=== PATIENT | male | born 1950 | race Caucasian/White ===

== ENCOUNTER 2018-08-10 06:00 | Inpatient (IN) | payer OTHER, MEDICARE ==
--- NOTE | 2018-08-05 13:57 | RAD REPORT ---
EXAM DESCRIPTION: Dmitri Huntley And Alison (2 Views)08/05/2018 1:42 pm CLINICAL HISTORY: Preop for knee replacement. COMPARISON: 2016 FINDINGS: Hypertension sub centimeter nodule within the left lung base is unchanged. The lungs appear clear of acute infiltrate. The heart is normal size IMPRESSION: No acute abnormalities displayed
[2018-08-05 14:21] LABS: Urine Appearance CLEAR; Urine Bilirubin NEGATIVE (NEG); Urine Blood NEGATIVE (NEG); Urine Color YELLOW; Urine Glucose NEGATIVE (NEG); Urine Protein NEGATIVE (NEG); Urine Specific Gravity 1.015 (1.005-1.030); Urine pH 7.5 (5.0-7.0)
[2018-08-05 14:22] LABS: Urine Microscopic Reflex NO UMIC
[2018-08-05 14:36] LABS: Absolute Lymphocytes (CBC) 2.3 K/uL (0.7-4.9); Absolute Monocytes 0.6 K/uL (0.1-1.3); Absolute Neutrophil 3.7 K/uL (1.8-8.0); Eosinophils % 4.8 % (0-4.4); Hematocrit 41.7 % (39.6-49.0); Lymphocytes % 33.4 % (15.3-44.8); MCH 31.8 pg (27.0-35.0); MPV 9.6 fL (7.6-11.3); Monocytes % 8.5 % (3.3-12.3); RBC Red Blood Cell Count 4.58 M/uL (4.33-5.43)
[2018-08-05 14:54] LABS: Albumin 3.8 g/dL (3.4-5.0); Bilirubin Total 0.4 mg/dL (0.2-1.0); Protein, Total 7.1 g/dL (6.4-8.2)
[2018-08-05 16:51] LABS: ALT/SGPT 30 U/L (12-78); AST/SGOT 19 U/L (15-37); Albumin 3.8 g/dL (3.4-5.0); Alkaline Phosphatase 53 U/L (45-117); Bilirubin Direct < 0.1 mg/dL (0-0.2); Bilirubin Total 0.4 mg/dL (0.2-1.0)
[2018-08-10] MEDS ORDERED: AMINOPHYLLINE 500 MG/20 ML IV ONE ×2 (06:01→08:59)
--- OUTSIDE RECORDS SUMMARY | 2018-08-10 06:03 | XMS REPORT ---
:1950 Author Organization eClinicalWorks Care Team Providers Name Role Phone Jaswinder Arvizuuel Provider Role Unavailable Allergies No Known Allergies Problems Problem Type Condition Code Onset Dates Condition Status Problem Type 2 diabetes mellitus without E11.9 Active complication, without long-term current use of insulin Problem Presence of left artificial knee Z96.652 Active joint Problem Reactive depression F32.9 Active Problem Plantar fasciitis of right foot M72.2 Active Problem Other chronic pain G89.29 Active Problem Pain, joint, knee, right M25.561 Active Problem Pain in left knee M25.562 Active Problem Presence of right artificial knee Z96.651 Active joint Problem Pain of right heel M79.671 Active Problem Primary osteoarthritis of right M17.11 Active knee Assessment Plantar fasciitis of right foot M72.2 Active Assessment Primary osteoarthritis of right M17.11 Active knee Assessment Pain, joint, knee, right M25.561 Active Assessment Pain of right heel M79.671 Active Medications Medication Code Code Instructions Start End Status Dosage System Date Date Rosuvastatin [facility] 08923454633 40 MG Orally Active 1 tablet Calcium Once a day Ocuvite ND 0 Active not defined Irbesartan-[place] [facility] 60897196910 300-12.5 MG Active 1 tablet chlorothiazide Orally Once a day Multi Vitamin [facility] 59176599234 - Orally Once a Active 1 tablet Mens day Aspirin Adult [facility] 44914847407 81 MG Orally Active 1 tablet Low Strength Once a day Metoprolol [facility] 28048890502 25 MG Orally Active 1 tablet Tartrate Twice a day with food Paroxetine HCl [facility] 25402702755 40MG Active TAKE ONE TABLET BY MOUTH ONCE DAILY MetFORMIN HCl ER [facility] 95614177094 500 MG Orally Active 1 tablet Once a day with evening meal Vitamin D3 [facility] 11939497016 1000 UNIT Active 1 capsule Orally Once a day Irbesartan-[place] [facility] 05862134754 300-12.5 Active TAKE ONE chlorothiazide TABLET BY MOUTH ONCE DAILY B Complex [facility] 51580763480 - Orally Active not defined Results No Known Results Summary Purpose eClinicalWorks Submission
--- OUTSIDE RECORDS SUMMARY | 2018-08-10 06:03 | XMS REPORT ---
:1950 Author Organization eClinicalWorks Care Team Providers Name Role Phone Rachel Dasilva Provider Role Unavailable Allergies, Adverse Reactions, Alerts Substance Reaction Event Type N.K.D.A. Info Not Available Non Drug Allergy Problems Problem Type Condition Code Onset Dates Condition Status Assessment Pain in right knee M25.561 Active Assessment Pre-op examination Z01.818 Active Assessment Other chronic pain G89.29 Active Problem Pain in left knee M25.562 Active Problem Presence of right artificial knee Z96.651 Active joint Problem Other chronic pain G89.29 Active Problem Pain in right knee M25.561 Active Problem Pain of right heel M79.671 Active Problem Presence of left artificial knee Z96.652 Active joint Problem Primary osteoarthritis of right M17.11 Active knee Medications Medication Code Code Instructions Start End Status Dosage System Date Date Rosuvastatin [facility] 33931756732 40 MG Orally Active 1 tablet Calcium Once a day B Complex [facility] 55208084819 - Orally Active not defined Vitamin D3 [facility] 03289690472 1000 UNIT Active 1 capsule Orally Once a day Paroxetine HCl [facility] 26032304831 40MG Active TAKE ONE TABLET BY MOUTH ONCE DAILY Aspirin Adult [facility] 58028546391 81 MG Orally Active 1 tablet Low Strength Once a day Ocuvite NDC 0 Active not defined Multi Vitamin [facility] 57432290610 - Orally Once a Active 1 tablet Mens day Irbesartan-[place] [facility] 07408043134 300-12.5 MG Active 1 tablet chlorothiazide Orally Once a day MetFORMIN HCl ER ND 21945425641 500 MG Orally Active 1 tablet Once a day with evening meal Irbesartan-[place] [facility] 66712617725 300-12.5 Active TAKE ONE chlorothiazide TABLET BY MOUTH ONCE DAILY Metoprolol ND 86198322113 25 MG Orally Active 1 tablet Tartrate Twice a day with food Results No Known Results Summary Purpose eClinicalWorks Submission
[2018-08-10] MEDS ORDERED: NA CHLORIDE 0.9% 1,000 ML ONE ×2 (06:38→09:30)
[2018-08-10] MEDS ORDERED: CEFAZOLIN/SWI 1gm 1 GM/10 ML SYR ONE ×2 (06:38→10:14)
[2018-08-10] MEDS ORDERED: NA CHLORIDE 0.9% 250 ML ONE ×2 (06:55→08:53)
[2018-08-10] MEDS ORDERED: FENTANYL CITR 250 MCG/5 ML ONE (07:00)
[2018-08-10] MEDS ORDERED: MIDAZOLAM HCL 2 MG/2 ML INJ ONE (07:00)
[2018-08-10] MEDS ORDERED: LIDOCAINE 2% MPF 5 ML VIAL ONE (07:00)
[2018-08-10] MEDS ORDERED: PROPOFOL 200 MG/20 ML VIAL IV ONE (07:00)
[2018-08-10] MEDS ORDERED: DEXAMETHASONE 4 MG/ML VIAL ONE (07:08)
[2018-08-10] MEDS ORDERED: ROPLVACAINE HCL 40 ML ONE (07:08)
[2018-08-10] MEDS ORDERED: TRANEXAMIC ACID 1,000 MG in NA CHLORIDE 0.9% 50 ML IV SCH (07:15)
[2018-08-10] MEDS: BUPIVACA 0.25%/EPI 0.0005% MDV 50 ML VIAL ONE ×2 (08:15→11:20)
[2018-08-10] MEDS ORDERED: ROCURONIUM 50 MG/5 ML VIAL IV ONE ×2 (08:34→10:06)
[2018-08-10] MEDS ORDERED: EPHEDRINE SULF 50 MG/10 ML SYR ONE (09:03)
[2018-08-10] MEDS ORDERED: Ringers Lactate 1,000 ML IV ONE (10:14)
[2018-08-10] MEDS ORDERED: NEOSTIGMINE 1 MG/ML -5 ML SYRINGE ONE (10:58)
[2018-08-10] MEDS ORDERED: GLYCOPYRROLATE 0.2 MG/ML SYR ONE (10:58)
[2018-08-10] MEDS ORDERED: KETOROLAC 30 MG/ML INJ ONE (11:03)
[2018-08-10] MEDS ORDERED: ALBUTEROL INHALER 60 PUFF/8 GM IH ONE (11:08)
--- NOTE | 2018-08-10 11:43 | P.BOP ---
Preoperative diagnosis: PRIMARY OSTEOARTHRITIS RIGHT KNEE Postoperative diagnosis: SAME Primary procedure: RIGHT TOTAL KNEE ARTHROPLASTY WITH COMPUTER NAVIGATION, IMAGELESS Change Control Coordinator: NEDA GOMES (GAVE NECESSARY ELECTRICAL TESTER BATTERY SERVICES THROUGHOUT CASE) Estimated blood loss: 150 mL Specimen: BONE SHARDS AND SOFT TISSUES DEBRIDED Findings: EBURNATED BONE MEDIAL COMPARTMENT Anesthesia: General Complications: None Implants: SIGMA [id number]./PS;[id number]/RP;[id number]/RP Fluids & blood products: LEON SIMPLEX w/[id number]; INJ 30 mL 0.25% MARCAINEw/EPI Transferred to: Recovery Room Condition: Good
[2018-08-10] MEDS ORDERED: MORPHINE 4 MG/ML SYR IV PRN (12:12)
[2018-08-10] MEDS ORDERED: DOCUSATE NA 100 MG CAP PO PRN (12:12)
[2018-08-10] MEDS ORDERED: ONDANSETRON 4 MG/2 ML VIAL IV PRN (12:12)
[2018-08-10 12:18] LABS: Hematocrit 41.8 % (39.6-49.0)
--- NOTE | 2018-08-10 13:22 | RAD REPORT ---
EXAM DESCRIPTION: RAD - Knee Right 2 View - 08/10/2018 1:14 pm CLINICAL HISTORY: Right knee surgery FINDINGS: Post surgical changes of a right knee arthroplasty are seen. The prosthesis appears in good position. No fracture or dislocation is noted
[2018-08-10] MEDS: Ringers Lactate 1,000 ML IV SCH (15:14)
[2018-08-10 16:16] VITALS: BMI 36.6
[2018-08-10] MEDS: CEFAZOLIN/SWI 1gm 1 GM/10 ML SYR IV SCH (16:57)
[2018-08-10] MEDS ORDERED: CEFAZOLIN/NS 1gm 1 GM/50 ML BAG IVPB SCH (17:00)
[2018-08-10] MEDS ORDERED: PNEUMOCOCCAL VACCINE 0.5 ML IMVAC ONE (17:00)
[2018-08-10] MEDS ORDERED: GLUCAGON 1 MG/VIAL IM PRN (17:51)
[2018-08-10] MEDS ORDERED: D50W 25 GM/50 ML SYRINGE IV PRN (17:51)
--- NOTE | 2018-08-10 17:51 | P.CNS ---
Date of Consult: 08/10/18 Called for medical management. Patient has a htn and diabetes and history of alcohol abuse. Was brought in by Dr. Arvizu for elective right knee replacement he has no complaints at this time. Will adjust his bp meds and put him on an insuling sliding scale. Possible discharge in the next few days.
[2018-08-10] MEDS: INSULIN -REGULAR HUMAN 50 UNIT/0.5 ML ML SQ SCH (21:00)
[2018-08-11] MEDS: CEFAZOLIN/SWI 1gm 1 GM/10 ML SYR IV SCH (00:25)
[2018-08-11 05:21] LABS: Hematocrit 35.3 % (39.6-49.0)
[2018-08-11] MEDS ORDERED: HOME MED 1 EA UNK (Irbesartan/Hydrochlorothiazide [Avalide 300-12.5 Mg Tablet] 1 EACH) PO SCH (06:00)
[2018-08-11] MEDS: METOPROLOL XL 25 MG TAB PO SCH (06:14)
[2018-08-11] MEDS: IRBESARTAN 150 MG TAB PO SCH (06:14)
[2018-08-11] MEDS: hydroCHLOROthiazide 12.5 MG CAP PO SCH (06:14)
[2018-08-11] MEDS: ENOXAPARIN 30 MG/0.3 ML SQ SCH ×2 (06:15→17:30)
[2018-08-11] MEDS: INSULIN -REGULAR HUMAN 50 UNIT/0.5 ML ML SQ SCH ×4 (07:30→20:31)
[2018-08-11] MEDS: METFORMIN HCL 500 MG TAB PO SCH (08:55)
[2018-08-11] MEDS: FE SULF/FA/VIT B COMP & C TAB PO SCH (08:55)
[2018-08-11] MEDS: CELECOXIB 100 MG CAPSULE PO SCH (08:55)
[2018-08-11] MEDS ORDERED: PAROXETINE HCL 40 MG PO SCH (09:00)
[2018-08-11] MEDS ORDERED: HOME MED 1 EA UNK (Multivitamin [Multivitamins] 1 EACH) PO SCH (09:00)
[2018-08-11] MEDS ORDERED: HOME MED 1 EA UNK (Rosuvastatin Calcium [Crestor] 40 MG) PO SCH (09:00)
--- NOTE | 2018-08-11 09:16 | P.PN ---
Subjective Date of Service: 08/11/18 Primary Care Provider: Finesse Dasilva Chief Complaint: elective right knee replacement Subjective: Improving (sitting at bedside. No complaints) Review of Systems 10-point ROS is otherwise unremarkable Physical Examination - Vital Signs Temperature: 97.8 F Blood Pressure: 139/69 Pulse: 84 Respirations: 16 Pulse Ox (%): 93 - Physical Exam General: Alert, In no apparent distress HEENT: Atraumatic, PERRLA, EOMI Neck: Supple, JVD not distended Respiratory: Clear to auscultation bilaterally, Normal air movement Cardiovascular: Regular rate/rhythm, Normal S1 S2 Gastrointestinal: Normal bowel sounds, No tenderness Musculoskeletal: No tenderness, Other (Right knee bandaged. drain in place. Less volume today) Integumentary: No rashes Neurological: Normal speech, Normal tone, Normal affect Lymphatics: No axilla or inguinal lymphadenopathy - Studies Laboratory Data (last 24 hrs) 08/11/18 04:46: Hgb 12.3 L, Hct 35.3 L D 08/10/18 12:09: Hgb Cancelled 08/10/18 12:09: Hgb 14.3, Hct 41.8 Assessment & Plan - Problems (Diagnosis) (1) Aftercare following right knee joint replacement surgery Current Visit: Yes Status: Acute Plan: Care per Dr. Arvizu. he is doing well. (2) Diabetes 1.5, managed as type 2 Current Visit: Yes Status: Acute Plan: Will continue metformin. Will check an a1c (3) HTN (hypertension) Current Visit: Yes Status: Acute Plan: continue home medications Qualifiers: Hypertension type: essential hypertension Qualified Code(s): I10 - Essential (primary) hypertension Discharge Plan: Home Plan to discharge in: 24 Hours - Code Status/Comfort Care Code Status Assessed: No Code Status: Full Code Physician Review: Patient Assessed, Agree with Above Assessment and Plan Critical Care: No Time Spent Managing Pts Care (In Minutes): 25
[2018-08-11] MEDS: Ringers Lactate 1,000 ML IV SCH (09:49)
[2018-08-11] MEDS: HYDROCODONE/APAP 7.5/325 MG TAB PO PRN ×2 (10:23→20:48)
--- NOTE | 2018-08-11 19:39 | P.PN ---
Date of Service: 08/11/18 (POD#1) S: THIS PATIENT IS FULL OF BRAVADO, TRYING TO JUMP OUT OF BED, AND IMPRESS PHYSICAL THERAPY WITH HIS ABILITIES. HE INDICATES HIS BLOCK WORE OFF AT 2:00 IN THE MORNING, BUT HE HAS NOT DECLARED MORE THAN 3/10 PAIN INTENSITY, AND HE HAS ONLY TAKEN 15 MG OF NORCO AND 650 MG OF TYLENOL ONE TIME AT APPROXIMATELY 10 :00 THIS MORNING. HE HAS BEEN TELLING EVERYONE THAT HE WANTS TO GO HOME TODAY, MOST LIKELY BECAUSE OF HIS TOBACCO HABIT OF ONE PACK PER DAY 55 YEARS. HE REFUSES USE OF A NICOTINE PATCH INDICATING HE CAN TAKE IT OR LEAVE IT WITH REGARD TO HIS SMOKING HABIT. O: AFEBRILE, VITAL SIGNS STABLE, HEMOGLOBIN POSTOPERATIVELY DROPPED FROM 14.6 TO 14.3, AND DROPPED A FURTHER 2 POINTS TO 12.3 WITH THIS MORNING'S TEST. THE PATIENT'S RIGHT KNEE IS QUITE TIGHT AND SWOLLEN WITH INTRA-ARTICULAR HEMORRHAGE. THE PATIENT STARTED LOVENOX 30 MG SUBCUTANEOUS INJECTIONS BID AT 6: 15 THIS MORNING FOR DVT PROPHYLAXIS. HIS 81 MG DOSE OF ASPIRIN DAILY IS ON HOLD AND WILL CONTINUE ON HOLD UNTIL TOMORROW. NEUROVASCULAR EXAM IS INTACT. THE OUTER KOKO WRAP BANDAGE WAS TAKEN DOWN TO PULL THE HEMOVAC DRAIN. FINGER TIP COMPRESSION WAS NECESSARY AT THE SITE FOR 3 MINUTES, AND THEN 4 X 4'S AND COMPRESSION KOKO WRAP WERE APPLIED AT THAT SITE, JUST ABOVE THE AQUA CELL BANDAGE COVERING THE INCISION. X-RAYS WERE REVIEWED, AND SHOWED GOOD ALIGNMENT OF PROSTHETIC COMPONENTS. A: PATIENT DEMONSTRATES MILD AGITATION AND TREMOR AND A TENSE HEMARTHROSIS THAT BEARS FURTHER OBSERVATION. HE TENDS TO LUNGE QUICKLY INSTEAD OF CAUTIOUSLY USING WALKER FOR SUPPORTED, SAFE AMBULATION. P: CONTINUE MOBILIZATION TOLERATED.
--- NOTE | 2018-08-12 04:52 | OP ---
Date of Procedure: 08/10/2018 Surgeon: Mikhail Arvizu MD Front Desk Monitor: MICHAEL Varela who gave very necessary photographer assistant services throughout the case. Preoperative Diagnosis: Primary osteoarthritis, right knee. Postoperative Diagnosis: Primary osteoarthritis, right knee with eburnated bone exposed medial condy le and tibial plateau. Primary Procedure: Right total knee arthroplasty with computer navigation, imageless. Indications: This 68-year-old patient is requesting his right total knee arthroplasty be performed 2 years after the left arthroscopy proved successful at eliminating his pain in that limb. The patien t has been made aware of risks and benefits and has elected to proceed. Technique: The patient was given a femoral and sciatic nerve block in the holding area before being taken to the operating room where he was placed on the operative table. He was given a general anest hetic with LMA and a time-out was called with all pertinent facts discussed. It was decided to proce ed with the operation. A bolster was placed under the right hip and a tourniquet was placed at the p roximal thigh. Prepping and draping was carried out with the left foot supported in traction and the n the traction was removed and DuraPrep was used to prep the foot and ankle thoroughly before draping ensued. The incision was drawn on the anterior knee and then the area exposed was covered with Ioba n sticky drape. The tourniquet was elevated to 250 mmHg after exsanguination with an Esmarch bandage . The incision was made longitudinally over the midportion of the patella beginning 4 cm proximal to the superior pole of the patella and ending up with an incision stopping just medial to the tibial t ubercle. This was carried sharply through the skin and subcutaneous tissue and the parapatellar area was exposed so that a capsular incision was made in that plane as long as the incision in the skin. The patella was everted and measured at 23 mm in thickness. The size 38 mm oval dome patella was ch osen and the cutting jig was set to take 9 mm of articular surface. The cut was made and the patella r trial prosthesis was inserted after PEG holes were drilled. The caliper then again confirmed jose ration of 23 mm of thickness for the patella and prosthetic component. The prosthetic patella was re moved and a alexa was put in its place to protect the patellar cut surface. Anterior sharp debridemen t was then carried out removing the reachable portions of menisci, ACL, and PCL, and anterior fat pad . Debridement down to cortical bone was carried out just above the distal anterior articular margin of the femur. The exposure allowed insertion of two 3 mm threaded pins to act as the anchor for the femoral array. Two punctures outside of the incision custodial to the ankle were made for insertion of 3 mm threaded pins x2 to anchor the femoral array. The computer was engaged and the foot was moved in a circular fashion so that the computer could record the center of rotation for the femoral head. Registration was carried out in sequence for the femur and then the tibia with verification of accur ate registration accomplished at each step. The machine then solved for a size 5 Sigma femur and siz e 5 tibial tray. The solution was initially accepted and the tibial cutting guide was navigated into position, secured with pins, and the tibial cut was performed and verified. The tensionometer was p ut in the knee and ligament tension seemed tight medially. There were releases made and ligament ten barbara improved to be nearly equal. At that time, the solution was changed to a size 4 femur for incre asing flexion gap to match extension gap. After making the distal femoral cut, which was performed w ith navigation of cutting jig, which was secured with a cut made and verified followed by the 4 in 1 cutting guide with the anterior cut made and verified, the extension block and flexion block were use d to verify rectangular and equal flexion and extension gaps. The distal femur was prepared with ant erior, posterior, and chamfer cuts followed by the box cutting guide for which the reciprocal saw was used. The trial prosthetic component fit very nicely and was removed so that preparation of the pro ximal tibia could be finished. The tibia was prepared for the MBT revision tray and the trial tray w as secured in position. The femoral component was tapped into place again and the size #10 insert wa s noted to fit nicely, but with some tightness on the medial side. A 2 mm additional cut was removed from the tibia to increase both the flexion gap and the extension gap and the size 10 component was again felt to be appropriate. All trial components were removed. Simpulse lavage was carried out. The tourniquet was released at 120 minutes and left down for 15 to 20 minutes before being reinflated for 18 minutes during cement insertion and setting with the prosthetic components held in position. The final components chosen were the Sigma femur size 4 right PS; tibia size 5 MBT revision tray RP; patella 38 mm oval dome patella; and the insert chosen was the size 4 x 10 mm posterior stabilized r otating platform. The knee would extend to 0 and flex to 125 degrees. The knee was stable to varus, valgus stress, and anterior-posterior drawer testing. [employer] Simplex cement with gentamicin was mi xed with 2 batches and put in a cement gun for injection technique. Closure was then affected with i rrigation followed by #1 Vicryl sutures to close the fascial layer of the medial parapatellar incisio n in the capsule. Deep subcu was performed with #1 Vicryl sutures interrupted and subcutaneous super ficial closure was carried out with 2-0 Vicryl interrupted sutures. Skin moises were used for skin closure. Estimated blood loss was 150 mL. The specimen sent included bone shards and soft tissues d ebrided. The incision was injected with 30 mL of 0.25% Marcaine with epinephrine. Bandage consisted of Aquacel bandage over the main incision and a smaller Aquacel bandage to cover the 2 punctures at the mid tibial location. A Hemovac drain was placed before closure in the suprapatellar pouch and ta neelam out the lateral thigh proximal to the incision. Soft roll and Keon wrap were placed over the drai n exit and knee incisions. The patient was taken to the recovery room and placed in a CPM machine at 0 to 60 degrees range of motion. CHIDI/JOSIAH Voice ID: [id number] Report ID: [id number]
[2018-08-12 05:30] LABS: Hematocrit 36.3 % (39.6-49.0)
[2018-08-12] MEDS: Ringers Lactate 1,000 ML IV SCH (05:48)
[2018-08-12] MEDS: ENOXAPARIN 30 MG/0.3 ML SQ SCH (05:49)
[2018-08-12] MEDS: IRBESARTAN 150 MG TAB PO SCH (05:50)
[2018-08-12] MEDS: METOPROLOL XL 25 MG TAB PO SCH (05:50)
[2018-08-12] MEDS: hydroCHLOROthiazide 12.5 MG CAP PO SCH (05:50)
[2018-08-12] MEDS: HYDROCODONE/APAP 7.5/325 MG TAB PO PRN (05:51)
[2018-08-12] MEDS: INSULIN -REGULAR HUMAN 50 UNIT/0.5 ML ML SQ SCH ×4 (07:30→20:51)
[2018-08-12] MEDS: METFORMIN HCL 500 MG TAB PO SCH (08:12)
[2018-08-12] MEDS: FE SULF/FA/VIT B COMP & C TAB PO SCH (08:12)
[2018-08-12] MEDS: CELECOXIB 100 MG CAPSULE PO SCH (08:12)
--- NOTE | 2018-08-12 12:06 | P.PN ---
Subjective Date of Service: 08/12/18 Primary Care Provider: Finesse Dasilva Chief Complaint: elective right knee replacement Subjective: Improving (drained removed. No complaints) Review of Systems 10-point ROS is otherwise unremarkable Physical Examination - Vital Signs Temperature: 97.3 F Blood Pressure: 122/61 Pulse: 71 Respirations: 17 Pulse Ox (%): 92 - Physical Exam General: Alert, In no apparent distress HEENT: Atraumatic, PERRLA, EOMI Neck: Supple, JVD not distended Respiratory: Clear to auscultation bilaterally, Normal air movement Cardiovascular: Regular rate/rhythm, Normal S1 S2 Gastrointestinal: Normal bowel sounds, No tenderness Musculoskeletal: No tenderness Integumentary: No rashes Neurological: Normal speech, Normal tone, Normal affect Lymphatics: No axilla or inguinal lymphadenopathy - Studies Laboratory Data (last 24 hrs) 08/12/18 04:43: Hgb 12.6 L, Hct 36.3 L Assessment & Plan - Problems (Diagnosis) (1) Aftercare following right knee joint replacement surgery Current Visit: Yes Status: Acute Plan: Care per Dr. Arvizu. he is doing well. (2) Diabetes 1.5, managed as type 2 Current Visit: Yes Status: Acute Plan: Will continue metformin. a1c is very good at 5.6. Continue current care (3) HTN (hypertension) Current Visit: Yes Status: Acute Plan: stable continue home medications Qualifiers: Hypertension type: essential hypertension Qualified Code(s): I10 - Essential (primary) hypertension Discharge Plan: Home - Code Status/Comfort Care Code Status Assessed: No Code Status: Full Code Physician Review: Patient Assessed, Agree with Above Assessment and Plan Critical Care: No Time Spent Managing Pts Care (In Minutes): 20
--- NOTE | 2018-08-12 13:28 | P.PN ---
Date of Service: 08/12/18 (POD#2) S: THIS PATIENT JUST WENT TO BEFORE MY ARRIVAL, AND SITS ON EDGE OF BED WITH DARK RED, BLOODY DRAINAGE DOWN ANKLE TO MOCCASIN SOCK AND FLOOR. THE DRAINAGE IS A RESULT OF POST-OP HEMORRHAGIC VOLUME AND HYDRAULIC FORCE EXPRESSING FLUID THROUGH THE LOWER INCISION AND PULLED HEMOVAC DRAIN SITE. O: AFEBRILE, VITAL SIGNS STABLE, HEMOGLOBIN UP SLIGHTLY THIS MORNING AT 12.6. THE PATIENT'S RIGHT KNEE REMAINS QUITE TIGHT AND SWOLLEN WITH INTRA-ARTICULAR HEMORRHAGE. WILL STOP LOVENOX INJECTIONS AND START XARELTO 10 MG P.O.DAILY TOMORROW. HIS 81 MG DOSE OF ASPIRIN WILL REMAIN ON HOLD. THE PATIENT WENT 270 ' X 2 THIS AM WITH PT. NEUROVASCULAR EXAM IS INTACT. THE OUTER KOKO WRAP BANDAGE AND AQUACEL BANDAGES WERE REMOVED; INCISIONS WERE SWABBED WITH ALCOHOL BEFORE NEW AQUACEL BANDAGES AND 4X4 GAUZE REINFORCEMENT WAS APPLIED AND SECURED IN POSITION WITH KOKO WRAP. X-RAYS WERE REVIEWED, AND SHOWED GOOD ALIGNMENT OF PROSTHETIC COMPONENTS. A: PATIENT AGAIN ANXIOUS TO GO HOME, BUT WAS CONVINCED TO STAY ANOTHER NIGHT. HEALING OF INCISION IS OF PARAMOUNT IMPORTANCE TO PREVENT CONTAMINATION AND INFECTION. PATIENT IS OK FOR SUPPORTED, SAFE AMBULATION WITH FWW. P: CONTINUE GRADUAL MOBILIZATION TOLERATED. DC LOVENOX. XARELTO 10 MG P.O. DAILY TO START IN AM PRIOR TO PLANNED DISCHARGE. HOME HEALTH CONSULT FOR ADL, BANDAGE CHANGES WITH AQUACEL Q 5D OR PRN DRAINAGE.
[2018-08-13] MEDS: IRBESARTAN 150 MG TAB PO SCH (06:54)
[2018-08-13] MEDS: METOPROLOL XL 25 MG TAB PO SCH (06:54)
[2018-08-13] MEDS: hydroCHLOROthiazide 12.5 MG CAP PO SCH (06:55)
[2018-08-13] MEDS: INSULIN -REGULAR HUMAN 50 UNIT/0.5 ML ML SQ SCH ×2 (07:30→11:30)
--- NOTE | 2018-08-13 09:36 | P.PN ---
Subjective Date of Service: 08/13/18 Primary Care Provider: Finesse Dasilva Chief Complaint: elective right knee replacement Subjective: No new changes Review of Systems 10-point ROS is otherwise unremarkable Physical Examination - Vital Signs Temperature: 97.7 F Blood Pressure: 114/58 Pulse: 73 Respirations: 18 Pulse Ox (%): 90 - Physical Exam General: Alert, In no apparent distress HEENT: Atraumatic, PERRLA, EOMI Neck: Supple, JVD not distended Respiratory: Clear to auscultation bilaterally, Normal air movement Cardiovascular: Regular rate/rhythm, Normal S1 S2 Gastrointestinal: Normal bowel sounds, No tenderness Musculoskeletal: No tenderness Integumentary: No rashes Neurological: Normal speech, Normal tone, Normal affect Lymphatics: No axilla or inguinal lymphadenopathy Assessment & Plan - Problems (Diagnosis) (1) Aftercare following right knee joint replacement surgery Current Visit: Yes Status: Acute Plan: Care per Dr. Arvizu. he is doing well. (2) Diabetes 1.5, managed as type 2 Current Visit: Yes Status: Acute Plan: Will continue metformin. a1c is very good at 5.6. Continue current care (3) HTN (hypertension) Current Visit: Yes Status: Acute Plan: stable continue home medications Qualifiers: Hypertension type: essential hypertension Qualified Code(s): I10 - Essential (primary) hypertension Discharge Plan: Home Plan to discharge in: 24 Hours Physician Review: Patient Assessed, Agree with Above Assessment and Plan Critical Care: No Time Spent Managing Pts Care (In Minutes): 20
[2018-08-13 09:57] LABS: Hematocrit 35.3 % (39.6-49.0)
[2018-08-13] MEDS: METFORMIN HCL 500 MG TAB PO SCH (10:10)
[2018-08-13] MEDS: FE SULF/FA/VIT B COMP & C TAB PO SCH (10:10)
[2018-08-13 12:49] VITALS: BP 141/63; TEMP 97.6
[2018-08-13 13:33] VITALS: O2SAT 98
== END 2018-08-13 14:46 | disposition home or self-care (01) | DRG 470 ==
LOC: OR 06:00 → 2ND 12:12
PROVIDERS: ADMIT Orthopaedic Surgery; ATTEND Orthopaedic Surgery
PROC: 8E0YXBZ Computer Assisted Procedure of Lower Extremity (ICD-10-PCS; 2018-08-10)
PROC: 0SRC0J9 Replacement of Right Knee Joint with Synthetic Substitute, Cemented, Open Approach (ICD-10-PCS; principal; 2018-08-10 07:30)
DX: M17.11 Unilateral primary osteoarthritis, right knee (principal); M96.830 Postprocedural hemorrhage of a musculoskeletal structure following a musculoskeletal system procedure; E11.9 Type 2 diabetes mellitus without complications; J44.9 Chronic obstructive pulmonary disease, unspecified; I10 Essential (primary) hypertension; F10.10 Alcohol abuse, uncomplicated; Y83.8 Other surgical procedures as the cause of abnormal reaction of the patient, or of later complication, without mention of misadventure at the time of the procedure; Y92.239 Unspecified place in hospital as the place of occurrence of the external cause
CPT/HCPCS: 36415; 71046; 80053; 80076; 81003; 82962; 83036; 85014; 85018; 85025; 85610; 85730; 86850; 86900; 86901; 88304; 88311; 97163; J0280; J0690; J1650; J2250; J2710; J2795; J7030

== ENCOUNTER 2019-05-01 12:22 | Emergency (ER) | payer OTHER, MEDICARE ==
--- OUTSIDE RECORDS SUMMARY | 2019-05-01 12:24 | XMS REPORT ---
[...] End Status Dosage System Date Date Rosuvastatin [facility] 17755330804 40 MG Orally Active 1 tablet Calcium Once a day B Complex [facility] 38227239482 - Orally Active not defined Vitamin D3 [facility] 91770980049 1000 UNIT Active 1 capsule Orally Once a day Paroxetine HCl [facility] 88085960026 40MG Active TAKE ONE TABLET BY MOUTH ONCE DAILY Aspirin Adult [facility] 30076396085 81 MG Orally Active 1 tablet Low Strength Once a day Ocuvite NDC 0 Active not defined Multi Vitamin [facility] 41328394201 - Orally Once a Active 1 tablet Mens day Irbesartan-[place] [facility] 07875857340 300-12.5 MG Active 1 tablet chlorothiazide Orally Once a day MetFORMIN HCl ER ND 50952802679 500 MG Orally Active 1 tablet Once a day with evening meal Irbesartan-[place] [facility] 98118053097 300-12.5 Active TAKE ONE chlorothiazide TABLET BY MOUTH ONCE DAILY Metoprolol ND 46274483830 25 MG Orally Active 1 tablet Tartrate Twice a day with food Results No Known Results Summary Purpose eClinicalWorks Submission
--- OUTSIDE RECORDS SUMMARY | 2019-05-01 12:24 | XMS REPORT ---
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
--- OUTSIDE RECORDS SUMMARY | 2019-05-01 12:24 | XMS REPORT ---
[...] End Status Dosage System Date Date Rosuvastatin [facility] 57737166061 40 MG Orally Active 1 tablet Calcium Once a day Ocuvite ND 0 Active not defined Irbesartan-[place] [facility] 29737264272 300-12.5 MG Active 1 tablet chlorothiazide Orally Once a day Multi Vitamin [facility] 14759622111 - Orally Once a Active 1 tablet Mens day Aspirin Adult [facility] 46426181303 81 MG Orally Active 1 tablet Low Strength Once a day Metoprolol [facility] 93526886316 25 MG Orally Active 1 tablet Tartrate Twice a day with food Paroxetine HCl [facility] 98843432815 40MG Active TAKE ONE TABLET BY MOUTH ONCE DAILY MetFORMIN HCl ER [facility] 72166257310 500 MG Orally Active 1 tablet Once a day with evening meal Vitamin D3 [facility] 78492907865 1000 UNIT Active 1 capsule Orally Once a day Irbesartan-[place] [facility] 18426917297 300-12.5 Active TAKE ONE chlorothiazide TABLET BY MOUTH ONCE DAILY B Complex [facility] 10251997414 - Orally Active not defined Results No Known Results Summary Purpose eClinicalWorks Submission
--- OUTSIDE RECORDS SUMMARY | 2019-05-01 12:24 | XMS REPORT ---
:1950 Author Organization eClinicalWorks Care Team Providers Name Role Phone Jaswinder Arvizuuel Provider Role Unavailable Allergies, Adverse Reactions, Alerts Substance Reaction Event Type N.K.D.A. Info Not Available Non Drug Allergy Problems Problem Type Condition Code Onset Dates Condition Status Problem Reactive depression F32.9 Active Problem Presence of right artificial knee Z96.651 Active joint Problem Presence of left artificial knee Z96.652 Active joint Problem Pain, joint, knee, right M25.561 Active Problem Plantar fasciitis of right foot M72.2 Active Problem Aftercare following joint Z47.1 Active replacement surgery Problem Pain in left knee M25.562 Active Problem Primary osteoarthritis of right M17.11 Active knee Problem Other chronic pain G89.29 Active Problem Pain of right heel M79.671 Active Assessment Presence of right artificial knee Z96.651 Active joint Assessment Pain, joint, knee, right M25.561 Active Assessment Aftercare following joint Z47.1 Active replacement surgery Problem Type 2 diabetes mellitus without E11.9 Active complication, without long-term current use of insulin Medications Medication Code Code Instructions Start End Status Dosage System Date Date B Complex [facility] 92553659673 - Orally Active not defined Metoprolol [facility] 89365176695 25 MG Orally Active 1 tablet Tartrate Twice a day with food Irbesartan-Eleanor [facility] 22210465809 300-12.5 MG Active 1 tablet chlorothiazide Orally Once a day MetFORMIN HCl ER ND 29208807465 500 MG Orally Active 1 tablet Once a day with evening meal Ocuvite NDC 0 Active not defined Aspirin Adult [facility] 44111366505 81 MG Orally Active 1 tablet Low Strength Once a day Vitamin D3 [facility] 09013990213 1000 UNIT Active 1 capsule Orally Once a day Multi Vitamin ND 76379744138 - Orally Once a Active 1 tablet Mens day Paroxetine HCl [facility] 23043170051 40MG Active TAKE ONE TABLET BY MOUTH ONCE DAILY Irbesartan-Eleanor [facility] 36862360988 300-12.5 Active TAKE ONE chlorothiazide TABLET BY MOUTH ONCE DAILY Rosuvastatin [facility] 11504965668 40 MG Orally Active 1 tablet Calcium Once a day Results No Known Results Summary Purpose eClinicalWorks Submission
--- OUTSIDE RECORDS SUMMARY | 2019-05-01 12:25 | XMS REPORT ---
:1950 Author Organization eClinicalWorks Care Team Providers Name Role Phone Rachel Dasilva Provider Role Unavailable Allergies No Known Allergies Problems Problem Type Condition Code Onset Dates Condition Status Problem Primary osteoarthritis of right M17.11 Active knee Problem Pain of right heel M79.671 Active Problem Pain in left knee M25.562 Active Problem Type 2 diabetes mellitus without E11.9 Active complication, without long-term current use of insulin Problem Reactive depression F32.9 Active Problem Pain, joint, knee, right M25.561 Active Problem Plantar fasciitis of right foot M72.2 Active Problem Aftercare following joint Z47.1 Active replacement surgery Problem Presence of right artificial knee Z96.651 Active joint Problem Presence of left artificial knee Z96.652 Active joint Problem Essential (primary) hypertension I10 Active Problem Other chronic pain G89.29 Active Medications No Known Medications Results No Known Results Summary Purpose eClinicalWorks Submission
--- OUTSIDE RECORDS SUMMARY | 2019-05-01 12:25 | XMS REPORT ---
[...] Problem Pain in left knee M25.562 Active Assessment Medicare annual wellness visit, Z00.00 Active subsequent Problem Type 2 diabetes mellitus without E11.9 [...] Problem Other chronic pain G89.29 Active Medications Medication Code Code Instructions Start End Status Dosage System Date Date Aspirin Adult [facility] 44779044635 81 MG Orally Active 1 tablet Low Strength Once a day Ocuvite NDC 0 Active not defined Paroxetine HCl [facility] 01367701973 40MG Active TAKE ONE TABLET BY MOUTH ONCE DAILY Hydrocodone-Keon [facility] [address]-57 Active not taminophen defined Metoprolol [facility] 66871505711 25 MG Orally Active 1 tablet Tartrate Twice a day with food B Complex [facility] 69442766541 - Orally Active not defined Irbesartan-Hydr ND 92661955867 300-12.5 MG Active 1 tablet ochlorothiazide Orally Once a day MetFORMIN HCl ND 66929221619 500 MG Orally Active 1 tablet ER Once a day with evening meal Multi Vitamin [facility] 81813876352 - Orally Once a Active 1 tablet Mens day Rosuvastatin [facility] 50002511749 40 MG Orally Active 1 tablet Calcium Once a day Vitamin D3 [facility] 64092342745 1000 UNIT Active 1 capsule Orally Once a day Results No Known Results Summary Purpose eClinicalWorks Submission
--- OUTSIDE RECORDS SUMMARY | 2019-05-01 12:25 | XMS REPORT ---
[...] Start End Status Dosage System Date Date Ocuvite [facility] 0 Active not defined Aspirin Adult [facility] 07465514968 81 MG Orally Active 1 tablet Low Strength Once a day Hydrocodone-Keon [facility] [address]-33 Active not taminophen defined Multi Vitamin [facility] 24067491441 - Orally Once a Active 1 tablet Mens day Paroxetine HCl [facility] 89537369625 40MG Active TAKE ONE TABLET BY MOUTH ONCE DAILY Rosuvastatin ND 58246500538 40 MG Orally Active 1 tablet Calcium Once a day B Complex [facility] 07685924630 - Orally Active not defined Irbesartan-Hydr [facility] 27710617934 300-12.5 MG Active 1 tablet ochlorothiazide Orally Once a day MetFORMIN HCl ND 30480951336 500 MG Orally Active 1 tablet ER Once a day with evening meal Vitamin D3 [facility] 58433732671 1000 UNIT Active 1 capsule Orally Once a day Irbesartan-Hydr [facility] 73345566870 300-12.5 Active TAKE ONE ochlorothiazide TABLET BY MOUTH ONCE DAILY Metoprolol [facility] 97287276562 25 MG Orally Active 1 tablet Tartrate Twice a day with food Results No Known Results Summary Purpose eClinicalWorks Submission
--- OUTSIDE RECORDS SUMMARY | 2019-05-01 12:25 | XMS REPORT ---
[...] Start End Status Dosage System Date Date Hydrocodone-Keon [facility] [address]-93 Active not taminophen defined Metoprolol [facility] 05566985709 25 MG Active TAKE ONE Succinate ER TABLET BY MOUTH ONCE DAILY Vitamin D3 [facility] 65649159115 1000 UNIT Active 1 capsule Orally Once a day B Complex [facility] 45837356802 - Orally Active not defined Multi Vitamin [facility] 53559465149 - Orally Once a Active 1 tablet Mens day Paroxetine HCl [facility] 42055991322 40MG Active TAKE ONE TABLET BY MOUTH ONCE DAILY Rosuvastatin [facility] 55505165318 40 MG Orally Active 1 tablet Calcium Once a day Aspirin Adult [facility] 19733455740 81 MG Orally Active 1 tablet Low Strength Once a day Ocuvite NDC 0 Active not defined Metoprolol [facility] 66276904835 25 MG Orally Active 1 tablet Tartrate Twice a day with food Irbesartan-Hydr [facility] 87757607591 300-12.5 MG Active 1 tablet ochlorothiazide Orally Once a day MetFORMIN HCl [facility] 55694072808 500 MG Orally Active 1 tablet ER Once a day with evening meal Irbesartan-Hydr [facility] 88413723230 300-12.5 Active TAKE ONE ochlorothiazide TABLET BY MOUTH ONCE DAILY Results No Known Results Summary Purpose eClinicalWorks Submission
--- OUTSIDE RECORDS SUMMARY | 2019-05-01 12:25 | XMS REPORT ---
[...] Status Dosage System Date Date B Complex [facility] 64890440087 - Orally Active not defined Rosuvastatin [facility] 81149416491 40 MG Orally Active 1 tablet Calcium Once a day Vitamin D3 [facility] 44868757508 1000 UNIT Active 1 capsule Orally Once a day Multi Vitamin [facility] 19313199007 - Orally Once a Active 1 tablet Mens day Aspirin Adult [facility] 05978799198 81 MG Orally Active 1 tablet Low Strength Once a day Ocuvite ND 0 Active not defined Paroxetine HCl [facility] 36501705436 40MG Active TAKE ONE TABLET BY MOUTH ONCE DAILY Irbesartan-[place] [facility] 59143397306 300-12.5 MG Active 1 tablet chlorothiazide Orally Once a day MetFORMIN HCl ER [facility] 16473779294 500 MG Orally Active 1 tablet Once a day with evening meal Irbesartan-[place] [facility] 64227833004 300-12.5 Active TAKE ONE chlorothiazide TABLET BY MOUTH ONCE DAILY Metoprolol [facility] 60458385355 25 MG Orally Active 1 tablet Tartrate Twice a day with food Results No Known Results Summary Purpose eClinicalWorks Submission
--- OUTSIDE RECORDS SUMMARY | 2019-05-01 12:25 | XMS REPORT ---
[...] Pain in left knee M25.562 Active Problem Pain, joint, knee, right M25.561 Active Problem Plantar fasciitis of right foot M72.2 Active Problem Aftercare following joint Z47.1 Active replacement surgery Problem Presence of right artificial knee Z96.651 Active joint Problem Presence of left artificial knee Z96.652 Active joint Problem Essential (primary) hypertension I10 Active Problem Other chronic pain G89.29 Active Assessment Prostate cancer screening Z12.5 Active Assessment Type 2 diabetes mellitus without E11.9 Active complication, without long-term current use of insulin Assessment Essential (primary) hypertension I10 Active Problem Type 2 diabetes mellitus without E11.9 Active complication, without long-term current use of insulin Assessment Reactive depression F32.9 Active Problem Reactive depression F32.9 Active Medications Medication Code Code Instructions Start End Status Dosage System Date Date Aspirin Adult [facility] 61872767530 81 MG Orally Active 1 tablet Low Strength Once a day Vitamin D3 [facility] 69925946551 1000 UNIT Active 1 capsule Orally Once a day Multi Vitamin [facility] 46488578657 - Orally Once a Active 1 tablet Mens day MetFORMIN HCl [facility] 38716612132 500 MG Orally Active 1 tablet ER Once a day with evening meal Metoprolol ND 65205274529 25 MG Orally Active 1 tablet Tartrate Twice a day with food Ocuvite ND 0 Active not defined Paroxetine HCl [facility] 26592083566 40MG Active TAKE ONE TABLET BY MOUTH ONCE DAILY Hydrocodone-Keon [facility] [address]-99 Active not taminophen defined Irbesartan-Hydr [facility] 79365943939 300-12.5 MG Active 1 tablet ochlorothiazide Orally Once a day Rosuvastatin [facility] 64514388124 40 MG Orally Active 1 tablet Calcium Once a day B Complex [facility] 01459509718 - Orally Active not defined Results No Known Results Summary Purpose eClinicalWorks Submission
--- OUTSIDE RECORDS SUMMARY | 2019-05-01 12:25 | XMS REPORT ---
[...] Medications Medication Code Code Instructions Start End Date Status Dosage System Date Losartan [facility] 48025445476 100-12.5 MG March 08, Active 1 tablet Potassium-HCTZ Orally Once a 2018 day Results No Known Results Summary Purpose eClinicalWorks Submission
--- NOTE | 2019-05-01 13:24 | RAD REPORT ---
EXAM DESCRIPTION: CT - Stone Protocol - 05/01/2019 1:01 pm CLINICAL HISTORY: Abdominal pain. Left flank pain COMPARISON: None. TECHNIQUE: Computed axial tomography of the abdomen pelvis was obtained without oral or IV contrast. Lack of IV and oral contrast limits evaluation of solid organs, bowel, and vessels. Coronal reformat albert images were obtained and reviewed. All CT scans are performed using dose optimization technique as appropriate and may include automated exposure control or mA/KV adjustment according to patient size. FINDINGS: Multiple, small bilateral renal calculi. Mild left hydronephrosis. 2 millimeter calculus m id left ureter. The liver, spleen, pancreas and left adrenal appear grossly normal. A small right adrenal adenoma There is no evidence of diverticulitis. The appendix appears normal IMPRESSION: 2 millimeter calculus mid left ureter resulting in mild left hydronephrosis
[2019-05-01 13:26] LABS: Absolute Lymphocytes (CBC) 1.6 K/uL (0.7-4.9); Absolute Monocytes 0.9 K/uL (0.1-1.3); Absolute Neutrophil 8.4 K/uL (1.8-8.0); Basophils % 0.4 % (0-1.3); Eosinophils % 1.8 % (0-4.4); Hematocrit 44.8 % (39.6-49.0); Lymphocytes % 14.6 % (15.3-44.8); Monocytes % 8.3 % (3.3-12.3); RBC Red Blood Cell Count 4.97 M/uL (4.33-5.43)
[2019-05-01] MEDS ORDERED: ONDANSETRON 4 MG/2 ML VIAL ONE (13:37)
[2019-05-01] MEDS ORDERED: NA CHLORIDE 0.9% 500 ML ONE (13:37)
[2019-05-01] MEDS ORDERED: MORPHINE 4 MG/ML SYR ONE (13:37)
[2019-05-01 13:38] LABS: Albumin 4.1 g/dL (3.4-5.0); Bilirubin Direct 0.2 mg/dL (0-0.2); Bilirubin Total 0.5 mg/dL (0.2-1.0); Protein, Total 7.3 g/dL (6.4-8.2)
[2019-05-01] MEDS ORDERED: TAMSULOSIN 0.4 MG SR CAP ONE (13:58)
[2019-05-01] MEDS ORDERED: KETOROLAC 30 MG/ML INJ ONE (14:02)
[2019-05-01 14:05] LABS: Urine Bacteria 20-50 /HPF (NONE SEEN); Urine RBC >50 /HPF (NONE SEEN)
[2019-05-01 14:06] LABS: Calcium Oxalate Crystals- Ur FEW (NONE SEEN); Urine Culture Reflex Order REFLEXED
[2019-05-01 14:06] LABS: Urine Blood 3+ (NEG); Urine Glucose NEGATIVE (NEG); Urine Protein 2+ (NEG); Urine Specific Gravity >1.030 (1.005-1.030); Urine pH 5.5 (5.0-7.0)
--- NOTE | 2019-05-01 14:56 | EDPHYS ---
Physician Documentation [facility] Name: Mikhail Lucas Age: 68 yrs Sex: Male : 1950 Arrival Date: 05/01/2019 Time: 12:25 Bed 16 Private MD: ED Physician Francesco Miranda HPI: 05/01 12:51 This 68 yrs old Male presents to ER via Ambulatory with complaints of jmm Possible Kidney Stone. 12:51 The patient presents with pain that is acute. Onset: The symptoms/episode jmm began/occurred yesterday. The pain does not radiate. This is a 68 year old male with a history of htn, hlp, dm that presents to the ED with complaints of left sided back pain, vomiting beginning yesterday. patient has a remote history of kidney stone. Denies chest pain, denies shortness of breath. . Historical: - Allergies: 12:41 No Known Allergies; bp - Home Meds: 12:41 paroxetine oral oral [Active]; rosuvastatin oral oral [Active]; Metformin Oral bp [Active]; Metoprolol Tartrate Oral [Active]; irbesartan oral oral [Active]; aspirin 81 mg Oral TbEC 1 tab once daily [Active]; - PMHx: 12:41 Diabetes - NIDDM; Hypertension; High Cholesterol; bp - PSHx: 12:41 Knee surgery; bp - Immunization history:: Adult Immunizations up to date. - Social history:: Smoking status: Patient/guardian denies using tobacco. - Ebola Screening: : No symptoms or risks identified at this time. ROS: 12:51 Constitutional: Negative for fever, chills, and weight loss, Cardiovascular: Negative jmm for chest pain, palpitations, and edema, Respiratory: Negative for shortness of breath, cough, wheezing, and pleuritic chest pain. 12:51 Abdomen/GI: Positive for vomiting. 12:51 Back: Positive for flank pain, on the left. 12:51 All other systems are negative. Exam: 12:51 Constitutional: This is a well developed, well nourished patient who is awake, alert, jmm and in no acute distress. Head/Face: atraumatic. Eyes: EOMI, no conjunctival erythema appreciated ENT: Moist Mucus Membranes Neck: Trachea midline, Supple Chest/axilla: Normal chest wall appearance and motion. Cardiovascular: Regular rate and rhythm. No edema appreciated Respiratory: Normal respirations, no respiratory distress appreciated 12:51 Abdomen/GI: Inspection: obese Bowel sounds: normal, Palpation: soft, nontender, in all quadrants. 12:51 Back: CVA tenderness, that is mild, is noted on the left. 12:51 Musculoskeletal/extremity: ROM: intact in all extremities. 12:51 Neuro: Orientation: is normal, Mentation: is normal, Memory: is normal. 12:51 Psych: Behavior/mood is pleasant, cooperative. Vital Signs: 12:41 BP 144 / 79; Pulse 63; Resp 20; Temp 97.7; Pulse Ox 95% ; Weight 113.4 kg; Height 6 ft. bp (182.88 cm); 13:23 BP 154 / 93; Pulse 66; Resp 18; Temp 97.9(O); Pulse Ox 95% on R/A; mh5 14:29 BP 143 / 101; Pulse 75; Resp 18; Temp 98.1(O); Pulse Ox 94% on R/A; mh5 15:12 BP 141 / 95; Pulse 77; Resp 17; Temp 98.3(O); Pulse Ox 99% on R/A; Pain 0/10; rb1 12:41 Body Mass Index 33.91 (113.40 kg, 182.88 cm) bp MDM: 12:50 Patient medically screened. erik 14:54 Data reviewed: vital signs, nurses notes. Counseling: I had a detailed discussion with [facility] the patient and/or guardian regarding: the historical points, exam findings, and any diagnostic results supporting the discharge/admit diagnosis, lab results, radiology results, the need for outpatient follow up, to return to the emergency department if symptoms worsen or persist or if there are any questions or concerns that arise at home. ED course: pain is relieved in the ED. patient advised to follow up with urology for reevaluation. patient otherwise given strict return precautions. patient understood and agrees with the plan of care. . 05/01 12:45 Order name: Basic Metabolic Panel; Complete Time: 13:45 [facility] 05/01 12:45 Order name: CBC with Diff; Complete Time: 13:30 [facility] 05/01 12:45 Order name: Creatinine for Radiology; Complete Time: 13:45 [facility] 05/01 12:45 Order name: Hepatic Function; Complete Time: 13:45 [facility] 05/01 12:45 Order name: Lipase; Complete Time: 13:45 [facility] 05/01 12:58 Order name: Urine Dipstick--Ancillary (enter results); Complete Time: 14:30 bd 05/01 12:45 Order name: CT Stone Protocol; Complete Time: 13:30 [facility] 05/01 13:18 Order name: Urine Microscopic Only; Complete Time: 14:30 mh5 05/01 14:08 Order name: Urine Culture [facility] 05/01 12:45 Order name: IV Saline Lock; Complete Time: 13:18 [facility] 05/01 12:45 Order name: Labs collected and sent; Complete Time: 13:18 [facility] 05/01 12:47 Order name: Urine Dipstick-Ancillary (obtain specimen); Complete Time: 13:18 [facility] Administered Medications: 13:30 Drug: morphine 4 mg Route: IVP; Site: left antecubital; rb1 13:45 Follow up: Response: No adverse reaction; Pain is unchanged, physician notified rb1 13:30 Drug: Zofran 4 mg Route: IVP; Site: left antecubital; rb1 13:45 Follow up: Response: No adverse reaction; Nausea is decreased rb1 13:30 Drug: NS 0.9% 500 ml Route: IV; Rate: bolus; Site: left antecubital; rb1 14:10 Follow up: IV Status: Completed infusion rb1 13:45 Drug: Flomax 0.4 mg Route: PO; rb1 14:10 Follow up: Response: No adverse reaction rb1 13:49 Drug: Ketorolac 15 mg Route: IVP; Site: left antecubital; rb1 14:10 Follow up: Response: No adverse reaction; Pain is decreased rb1 14:53 Drug: Rocephin 1 grams Route: IV; Rate: calculated rate; Site: left antecubital; rb1 15:10 Follow up: Response: No adverse reaction; IV Status: Completed infusion rb1 Disposition: 05/02 07:46 Co-signature as Attending Physician, Francesco Miranda MD I agree with the assessment and erik plan of care. Disposition: 05/01/19 14:56 Discharged to Home. Impression: Calculus of ureter. - Condition is Stable. - Discharge Instructions: Kidney Stones. - Prescriptions for Cephalexin 500 mg Oral Capsule - take 1 capsule by ORAL route every 12 hours for 10 days; 20 capsule. Tylenol- Codeine #3 300-30 mg Oral Tablet - take 1 tablet by ORAL route every 6 hours As needed; 12 tablet. Flomax 0.4 mg Oral Capsule, Sust. Release 24 hr - take 1 capsule by ORAL route once daily 1/2 hour following the same meal each day; 30 capsule. Zofran ODT 4 mg Oral tablet,disintegrating - place 1 tablet by TRANSLINGUAL route every 4-6 hours; 20 tablet. - Medication Reconciliation Form, Thank You Letter, Antibiotic Education, Prescription Opioid Use form. - Follow up: Private Physician; When: 2 - 3 days; Reason: Recheck today's complaints, Continuance of care, Re-evaluation by your physician. Signatures: Dispatcher [employer] EDFrancesco Eugene MD MD cha Mickail, Joel, PA PA jmm Barber, Rebecca, RN RN rb1 David Ortiz RN RN bp Corrections: (The following items were deleted from the chart) 05/01 15:14 14:56 05/01/2019 14:56 Discharged to Home. Impression: Calculus of ureter. Condition is rb1 Stable. Forms are Medication Reconciliation Form, Thank You Letter, Antibiotic Education, Prescription Opioid Use. Follow up: Private Physician; When: 2 - 3 days; Reason: Recheck today's complaints, Continuance of care, Re-evaluation by your physician. dinah
--- NOTE | 2019-05-01 14:56 | ER ---
Nurse's Notes [facility] Name: Mikhail Lucas Age: 68 yrs Sex: Male : 1950 Arrival Date: 05/01/2019 Time: 12:25 Bed 16 Private MD: Diagnosis: Calculus of ureter Presentation: 05/01 12:39 Presenting complaint: Patient states: LEFT FLANK PAIN SINCE THIS AM, H/O KIDNEY STONE. bp Transition of care: patient was not received from another setting of care. Onset of symptoms is unknown. Risk Assessment: Do you want to hurt yourself or someone else? Patient reports no desire to harm self or others. Initial Sepsis Screen: Does the patient meet any 2 criteria? No. Patient's initial sepsis screen is negative. Does the patient have a suspected source of infection? No. Patient's initial sepsis screen is negative. Care prior to arrival: None. 12:39 Method Of Arrival: Ambulatory bp 12:39 Acuity: STONE 3 bp Historical: - Allergies: 12:41 No Known Allergies; bp - Home Meds: 12:41 paroxetine oral oral [Active]; rosuvastatin oral oral [Active]; Metformin Oral bp [Active]; Metoprolol Tartrate Oral [Active]; irbesartan oral oral [Active]; aspirin 81 mg Oral TbEC 1 tab once daily [Active]; - PMHx: 12:41 Diabetes - NIDDM; Hypertension; High Cholesterol; bp - PSHx: 12:41 Knee surgery; bp - Immunization history:: Adult Immunizations up to date. - Social history:: Smoking status: Patient/guardian denies using tobacco. - Ebola Screening: : No symptoms or risks identified at this time. Screenin:50 Abuse screen: Denies threats or abuse. Nutritional screening: No deficits noted. rb1 Tuberculosis screening: No symptoms or risk factors identified. Fall Risk None identified. Assessment: 12:50 General: Appears uncomfortable, Behavior is calm, cooperative, Denies fever. Pain: rb1 Complains of pain in left flank Pain currently is 10 out of 10 on a pain scale. Neuro: Level of Consciousness is awake, alert, obeys commands, Oriented to person, place, time, situation. Cardiovascular: Capillary refill < 3 seconds is brisk in bilateral fingers. Respiratory: Airway is patent Respiratory effort is even, unlabored, Respiratory pattern is regular, symmetrical. GI: Bowel sounds present X 4 quads. Abd is soft X 4 quads. : No signs and/or symptoms were reported regarding the genitourinary system. Derm: Skin is pink, warm \T\ dry. 13:50 Reassessment: Patient appears in no apparent distress at this time. No changes from rb1 previously documented assessment. 14:50 Reassessment: Patient appears in no apparent distress at this time. Patient and/or rb1 family updated on plan of care and expected duration. Pain level reassessed. Patient is alert, oriented x 3, equal unlabored respirations, skin warm/dry/pink. Patient states feeling better. 15:12 Reassessment: Patient appears in no apparent distress at this time. Patient and/or rb1 family updated on plan of care and expected duration. Pain level reassessed. Patient is alert, oriented x 3, equal unlabored respirations, skin warm/dry/pink. Vital Signs: 12:41 BP 144 / 79; Pulse 63; Resp 20; Temp 97.7; Pulse Ox 95% ; Weight 113.4 kg; Height 6 ft. bp (182.88 cm); 13:23 BP 154 / 93; Pulse 66; Resp 18; Temp 97.9(O); Pulse Ox 95% on R/A; mh5 14:29 BP 143 / 101; Pulse 75; Resp 18; Temp 98.1(O); Pulse Ox 94% on R/A; mh5 15:12 BP 141 / 95; Pulse 77; Resp 17; Temp 98.3(O); Pulse Ox 99% on R/A; Pain 0/10; rb1 12:41 Body Mass Index 33.91 (113.40 kg, 182.88 cm) bp ED Course: 12:25 Patient arrived in ED. tw3 12:39 Triage completed. bp 12:41 Arm band placed on. bp 12:45 Loi Banuelos PA is PHCP. jmm 12:45 Francesco Miranda MD is Attending Physician. jmm 12:59 CT completed. Patient tolerated procedure well. Patient moved to CT. Patient moved back mw3 from CT. 13:04 CT Stone Protocol In Process Unspecified. EDMS 13:16 Rena Shirley, RN is Primary Nurse. rb1 13:16 Initial lab(s) drawn, by il, sent to lab. Urine collected: clean catch specimen, ajay mh5 colored. Inserted saline lock: 20 gauge in left antecubital area, using aseptic technique. Blood collected. 13:17 Patient has correct armband on for positive identification. Placed in gown. Bed in low mh5 position. Call light in reach. Adult w/ patient. Pulse ox on. NIBP on. 13:17 Urine Dipstick--Ancillary (enter results) Sent. mh5 13:18 Basic Metabolic Panel Sent. 5 13:18 CBC with Diff Sent. mh5 13:18 Creatinine for Radiology Sent. mh5 13:18 Hepatic Function Sent. 5 13:18 Lipase Sent. mh5 15:13 No provider procedures requiring assistance completed. IV discontinued, intact, rb1 bleeding controlled, No redness/swelling at site. Pressure dressing applied. Administered Medications: 13:30 Drug: morphine 4 mg Route: IVP; Site: left antecubital; rb1 13:45 Follow up: Response: No adverse reaction; Pain is unchanged, physician notified rb1 13:30 Drug: Zofran 4 mg Route: IVP; Site: left antecubital; rb1 13:45 Follow up: Response: No adverse reaction; Nausea is decreased rb1 13:30 Drug: NS 0.9% 500 ml Route: IV; Rate: bolus; Site: left antecubital; rb1 14:10 Follow up: IV Status: Completed infusion rb1 13:45 Drug: Flomax 0.4 mg Route: PO; rb1 14:10 Follow up: Response: No adverse reaction rb1 13:49 Drug: Ketorolac 15 mg Route: IVP; Site: left antecubital; rb1 14:10 Follow up: Response: No adverse reaction; Pain is decreased rb1 14:53 Drug: Rocephin 1 grams Route: IV; Rate: calculated rate; Site: left antecubital; rb1 15:10 Follow up: Response: No adverse reaction; IV Status: Completed infusion rb1 Outcome: 14:56 Discharge ordered by . dinah 15:13 Discharged to home ambulatory, with family. rb1 15:13 Condition: stable 15:13 Discharge instructions given to patient, Instructed on discharge instructions, follow up and referral plans. medication usage, Demonstrated understanding of instructions, follow-up care, medications, Prescriptions given X 4. 15:14 Patient left the ED. rb1 Signatures: Dispatcher [employer] EDMS Mickail, Loi, PA PA jmm Shirley, Rena, RN RN rb1 Jessica Trevizo 5 Amy Schaefer 3 David Ortiz RN RN bp Anabell Waggoner 3
[2019-05-01] MEDS ORDERED: CEFTRIAXONE/SWI 1gm 1 GM/10 ML SYR ONE (15:01)
[2019-05-01 15:37] VITALS: BP 141/95; TEMP 98.3; O2SAT 99
== END 2019-05-01 15:14 | disposition home or self-care (01) ==
LOC: ER 12:22
DX: N20.1 Calculus of ureter (principal); I10 Essential (primary) hypertension; E11.9 Type 2 diabetes mellitus without complications; E78.00 Pure hypercholesterolemia, unspecified; Z79.82 Long term (current) use of aspirin
CPT/HCPCS: 96365; 96361; 87088; 85025; 80048; 36415; 80076; 83690; 76377; 74176; 96375; 99284; J0696; J2405; 81003; 81015; 87086

== ENCOUNTER 2020-04-08 08:45 | Emergency (ER) | payer OTHER, MEDICARE ==
--- OUTSIDE RECORDS SUMMARY | 2020-04-08 08:47 | XMS REPORT ---
:1950 Author Organization eClinicalWorks Care Team Providers Name Role Phone Rachel Dasilva Provider Role Unavailable Allergies No Known Allergies Problems Problem Type Condition Code Onset Dates Condition Statu s Problem Primary osteoarthritis of right M17.11 Active knee Problem Pain of right heel M79.671 Active Problem Pain in left knee M25.562 Active Problem Type 2 diabetes mellitus without E11.9 Active complication, without long-term current use of insulin Problem Reactive depression F32.9 Active Problem Pain, joint, knee, right M25.561 Act godwin Problem Plantar fasciitis of right foot M72.2 Active Problem Aftercare following joint Z47.1 Ac tive replacement surgery Problem Presence of right artificial knee Z96.651 Active joint Problem Presence of left artificial knee Z96.652 Active joint Problem Essential (primary) hypertension I10 Active Problem Other chronic pain G89.29 Active Medications No Known Medications Results No Known Results Summary Purpose eClinicalWorks Submission
--- OUTSIDE RECORDS SUMMARY | 2020-04-08 08:47 | XMS REPORT ---
:1950 Author Organization [facility] t Address [address] [place] [address] Care Team Providers Name Role Phone Unavailable Unavailable Unavailable Problems Condition Condition Condition Status Onset Resolution Last Treatin g Comments Name Details Category Date Date Treatment Clinician Date Pain, Pain, Problem Active joint, joint, knee, right knee, right Other Other Problem Active chronic chronic pain pain Pain in Pain in Problem Active left knee left knee Presence of Presence of Problem Active right right artificial artificial knee joint knee joint Pain of Pain of Problem Active right heel right heel Presence of Presence of Problem Active left left artificial artificial knee joint knee joint Primary Primary Problem Active osteoarthri osteoarthri tis of tis of right knee right knee Type 2 Type 2 Diagnosis Active diabetes diabetes mellitus mellitus without without complicatio complicatio n, without n, without long-term long-term current use current use of insulin of insulin Reactive Reactive Problem Active depression depression Plantar Plantar Problem Active fasciitis fasciitis of right of right foot foot Aftercare Aftercare Problem Active following following joint joint replacement replacement surgery surgery Essential Essential Diagnosis Active (primary) (primary) hypertensio hypertensio n n Seasonal Seasonal Problem Active allergic allergic rhinitis rhinitis due to due to pollen pollen Deviated Deviated Diagnosis Active nasal nasal septum septum Prostate Prostate Diagnosis Active cancer cancer screening screening Allergies, Adverse Reactions, Alerts This patient has no known allergies or adverse reactions. Medications Ordered Filled Start Stop Current Ordering Indication Dosage Frequency Signature Comments Components Medication Medication Date Date Medication? Clinician (SIG) Name Name Rosuvastati Rosuvastati Yes Princess TAKE ONE n Calcium n Calcium [place] TABLET BY MOUTH ONCE DAILY AT BEDTIME Irbesartan- Irbesartan- Yes Princess TAKE ONE Hydrochloro Hydrochloro [place] TABLET B Y thiazide thiazide MOUTH ONCE DAILY Metoprolol Metoprolol Yes Princess 1 tablet Tartrate Tartrate [place] with food Aspirin Aspirin Yes Princess 1 tablet Adult Low Adult Low [place] Strength Strength Multi Multi Yes Princess 1 tablet Vitamin Vitamin [place] Mens Mens Paroxetine Paroxetine Yes Princess TAKE ONE HCl HCl [place] TABLET BY MOUTH ONCE DAILY Vitamin D3 Vitamin D3 Yes Princess 1 capsule [place] MetFORMIN MetFORMIN Yes Princess 1 tablet HCl ER HCl ER [place] with evening meal Encounters Start End Encounter Admission Attending Care Care Encounter Date/Time Date/Time Type Type Clinicians Facility Department ID 2020-03-01 2020-03-01 [facility] [id number] 10:20:00 10:20:00 [facility] 2020-02-29 2020-02-29 [facility] [id number] 13:26:00 13:26:00 [facility] 2019-08-30 2019-08-30 [facility] [id number] 16:00:00 16:00:00 [facility] 2019-03-08 2019-03-08 [facility] [id number] 17:11:00 17:11:00 [facility] 2019-03-07 2019-03-07 [facility] [id number] 14:26:00 14:26:00 [facility] 2019-02-07 2019-02-07 [facility] [id number] 12:15:00 12:15:00 [facility] 2019-01-31 2019-01-31 [facility] [id number] 10:00:00 10:00:00 [facility] 2019-01-24 2019-01-24 [facility] [id number] 09:00:00 09:00:00 [facility] 2018-11-10 2018-11-10 [facility] [id number] 08:30:00 08:30:00 [facility] 2018-08-30 2018-08-30 [facility] [id number] 13:30:00 13:30:00 [facility] 2018-08-23 2018-08-23 [facility] [id number] 11:00:00 11:00:00 [facility] 2018-08-19 2018-08-19 [facility] [id number] 16:54:00 16:54:00 [facility] 2018-08-16 2018-08-16 [facility] [id number] 13:30:00 13:30:00 [facility] 2018-08-05 2018-08-05 [facility] [id number] 14:45:00 14:45:00 [facility] 2018-07-26 2018-07-26 [facility] [id number] 11:30:00 11:30:00 [facility] Medicine Medicine
--- OUTSIDE RECORDS SUMMARY | 2020-04-08 08:47 | XMS REPORT ---
[...] End Date Status Dosage System Date Losartan [facility] 56109734497 100-12.5 MG March 08 Active 1 tab let Potassium-HCTZ Orally Once a 2018 day Results No Known Results Summary Purpose eClinicalWorks Submission
--- OUTSIDE RECORDS SUMMARY | 2020-04-08 08:48 | XMS REPORT ---
:1950 Author Organization eClinicalWorks Care Team Providers Name Role Phone Princess Dasilva Provider Role Unavailable Allergies No Known Allergies Problems Problem Type Condition Code Onset Dates Condition Statu s Problem Presence of right artificial knee Z96.651 Active joint Problem Pain in left knee M25.562 Active Problem Primary osteoarthritis of right M17.11 Active knee Problem Type 2 diabetes mellitus without E11.9 Active complication, without long-term current use of insulin Problem Reactive depression F32.9 Active Problem Presence of left artificial knee Z96.652 Active joint Problem Aftercare following joint Z47.1 Ac tive replacement surgery Problem Plantar fasciitis of right foot M72.2 Active Problem Seasonal allergic rhinitis due to J30.1 Active pollen Problem Other chronic pain G89.29 Active Problem Pain of right heel M79.671 Active Problem Pain, joint, knee, right M25.561 Act godwin Problem Essential (primary) hypertension I10 Active Medications No Known Medications Results No Known Results Summary Purpose eClinicalWorks Submission
--- OUTSIDE RECORDS SUMMARY | 2020-04-08 08:48 | XMS REPORT ---
:1950 Author Organization eClinicalWorks Care Team Providers Name Role Phone Princess Dasilva Provider Role Unavailable Allergies, Adverse Reactions, Alerts Substance Reaction Event Type N.K.D.A. Info Not Available Non Drug Allergy Problems Problem Type Condition Code Onset Dates Condition Statu s Problem Presence of right artificial knee Z96.651 Active joint Problem Pain in left knee M25.562 Active Problem Primary osteoarthritis of right M17.11 Active knee Problem Aftercare following joint Z47.1 Ac tive replacement surgery Problem Plantar fasciitis of right foot M72.2 Active Problem Seasonal allergic rhinitis due to J30.1 Active pollen Problem Other chronic pain G89.29 Active Problem Pain of right heel M79.671 Active Problem Pain, joint, knee, right M25.561 Act godwin Problem Essential (primary) hypertension I10 Active Assessment Seasonal allergic rhinitis due to J30.1 Active pollen Assessment Reactive depression F32.9 Active Problem Type 2 diabetes mellitus without E11.9 Active complication, without long-term current use of insulin Assessment Type 2 diabetes mellitus without E11.9 Active complication, without long-term current use of insulin Problem Reactive depression F32.9 Active Assessment Essential (primary) hypertension I10 Active Problem Presence of left artificial knee Z96.652 Active joint Medications Medication Code Code Instructions Start End Status Dosage System Date Date Rosuvastatin [facility] 84639903949 40 MG Active TAKE ON E Calcium TABLET BY MOUTH ONCE DAILY AT BEDTIME Irbesartan-Hydr [facility] 03399196001 300-12.5 Active TEMIT[place] E ONE ochlorothiazide TABLET B Y MOUTH ONCE DAILY Hydrocodone-[place] [facility] [address]-91 Active no t taminophen defined Metoprolol [facility] 46653363109 25 MG Orally Active 1 ta blet Tartrate Twice a day with food Aspirin Adult [facility] 45883382295 81 MG Orally Active 1 tablet Low Strength Once a day Multi Vitamin [facility] 88847645538 - Orally Once a Active 1 tablet Mens day B Complex [facility] 20435558029 - Orally Active not defined MetFORMIN HCl [facility] 01912956636 500 MG Orally Active 1 tablet ER Once a day with evening meal Paroxetine HCl [facility] 93525886830 40MG Active TAKE ONE TABLET BY MOUTH ONCE DAILY Metoprolol [facility] 47823944780 25 MG Orally Active 1 ta blet Tartrate Twice a day with food Ocuvite NDC 0 Active not defined Vitamin D3 [facility] 42329493673 1000 UNIT Active 1 capsu le Orally Once a day Results Name Result Date Reference Range Unit Abnormali ty Flag HEMOGLOBIN A1C ----A1C 5.8 [id number] Summary Purpose eClinicalWorks Submission
--- OUTSIDE RECORDS SUMMARY | 2020-04-08 08:48 | XMS REPORT ---
:1950 Author Organization eClinicalWorks Care Team Providers Name Role Phone Princess Dasilva Provider Role Unavailable Allergies, Adverse Reactions, Alerts Substance Reaction Event Type N.K.D.A. Info Not Available Non Drug Allergy Problems Problem Type Condition Code Onset Dates Condition Statu s Problem Presence of left artificial knee Z96.652 Active joint Problem Pain of right heel M79.671 Active Problem Presence of right artificial knee Z96.651 Active joint Problem Seasonal allergic rhinitis due to J30.1 Active pollen Problem Aftercare following joint Z47.1 Ac tive replacement surgery Problem Deviated nasal septum J34.2 Active Problem Essential (primary) hypertension I10 Active Problem Other chronic pain G89.29 Active Problem Pain, joint, knee, right M25.561 Act godwin Problem Plantar fasciitis of right foot M72.2 Active Assessment Essential (primary) hypertension I10 Active Assessment Reactive depression F32.9 Active Assessment Deviated nasal septum J34.2 Active Assessment Prostate cancer screening Z12.5 Ac tive Problem Type 2 diabetes mellitus without E11.9 Active complication, without long-term current use of insulin Problem Reactive depression F32.9 Active Assessment Type 2 diabetes mellitus without E11.9 Active complication, without long-term current use of insulin Problem Primary osteoarthritis of right M17.11 Active knee Problem Pain in left knee M25.562 Active Medications Medication Code Code Instructions Start End Status Dosage System Date Date MetFORMIN HCl ER ND 06846353614 500 MG Orally Activ e 1 tablet Once a day with evening meal Rosuvastatin ND 74213640815 40 MG Active TAKE ON E Calcium TABLET BY MOUTH ONCE DAILY AT BEDTIME Aspirin Adult ND 58102438020 81 MG Orally Active 1 tablet Low Strength Once a day Metoprolol ND 02783719139 25 MG Orally Active 1 ta blet Tartrate Twice a day with food Multi Vitamin ND 74851037608 - Orally Once a Active 1 tablet Mens day Irbesartan-[place] [facility] 54542070325 300-12.5 Active TA KE ONE chlorothiazide TABLET BY MOUTH ONCE DAILY Paroxetine HCl [facility] 33047560308 40MG Active TAKE ONE TABLET BY MOUTH ONCE DAILY Vitamin D3 [facility] 21330005779 1000 UNIT Active 1 capsu le Orally Once a day Results Name Result Date Reference Range Unit Abnormali ty Flag HEMOGLOBIN A1C ----A1C 6.2 [id number] Summary Purpose eClinicalWorks Submission
[2020-04-08] MEDS ORDERED: ONDANSETRON 4 MG/2 ML VIAL ONE (09:57)
[2020-04-08] MEDS ORDERED: MORPHINE 4 MG/ML SYR ONE (09:57)
[2020-04-08] MEDS ORDERED: NA CHLORIDE 0.9% 500 ML ONE ×2 (09:57→11:12)
[2020-04-08 10:10] LABS: Albumin 4.3 g/dL (3.4-5.0); Bilirubin Direct 0.2 mg/dL (0-0.2); Bilirubin Total 0.4 mg/dL (0.2-1.0); Protein, Total 8.1 g/dL (6.4-8.2)
--- NOTE | 2020-04-08 10:52 | RAD REPORT ---
EXAM DESCRIPTION: CT - Stone Protocol - 04/08/2020 10:04 am CLINICAL HISTORY: Flank pain. FLANK PAIN COMPARISON: Stone Protocol dated 05/01/2019 TECHNIQUE: Axial images were obtained without oral or IV contrast. Lack of contrast limits solid org an and vascular assessment. The [id number] spans the entirety of the system partially obscuring uppermost abdomen and lung bases. Coronal reformatted images were obtained and reviewed. All CT scans are performed using dose optimization technique as appropriate and may include automated exposure control or mA/KV adjustment according to patient size. FINDINGS: The lower lung rodriguez are clear. Small hiatal hernia is seen with mucosal thickening. Imaged portions of the liver and spleen show no suspicious findings on non-contrast imaging. The panc reas is grossly unremarkable.Nodularity is seen involving both adrenal glands. No pathologic lymphade nopathy in the abdomen or pelvis. 7 mm stone (650 HU) is present in the distal right ureter resulting mild right hydronephrosis. Additi onal stones are present in both renal calices, largest on the left inferiorly measuring 9 mm. No bowel obstruction, free air, free fluid or abscess. Normal appendix noted.Aortic atherosclerosis. Moderate lumbosacral degenerative changes with vacuum disc degeneration. IMPRESSION: 7 mm stone is present distal right ureter resulting in mild right hydronephrosis.
[2020-04-08 11:10] LABS: Absolute Lymphocytes (CBC) 2.9 K/uL (0.7-4.9); Basophils % 0.8 % (0-1.3); Lymphocytes % 36.3 % (15.3-44.8); MPV 8.9 fL (7.6-11.3); RBC Red Blood Cell Count 4.85 M/uL (4.33-5.43)
[2020-04-08 11:12] LABS: Urine Blood NEGATIVE (NEG); Urine Glucose NEGATIVE (NEG); Urine Protein NEGATIVE (NEG); Urine pH 5.5 (5.0-7.0)
[2020-04-08 11:24] LABS: Urine Bacteria <20 /HPF (NONE SEEN); Urine Culture Reflex Order REFLEXED; Urine RBC NONE SEEN /HPF (NONE SEEN)
[2020-04-08] MEDS ORDERED: TAMSULOSIN 0.4 MG SR CAP ONE (11:34)
[2020-04-08] MEDS ORDERED: CEFTRIAXONE/SWI 1gm 1 GM/10 ML SYR ONE (11:34)
--- NOTE | 2020-04-08 12:00 | EDPHYS ---
Physician Documentation [facility] Name: Mikhail Lucas Age: 69 yrs Sex: Male : 1950 Arrival Date: 04/08/2020 Time: 08:48 Bed 20 Private MD: Princess Dasilva ED Physician Francesco Miranda HPI: 04/08 09:53 This 69 yrs old Male presents to ER via Wheelchair with complaints of Flank pm1 Pain. 09:53 The patient complains of pain in the right low back. The pain does not radiate. Onset: pm1 The symptoms/episode began/occurred 1 week(s) ago. Modifying factors: The symptoms are alleviated by nothing. the symptoms are aggravated by nothing. Associated signs and symptoms: Pertinent negatives: diarrhea, dysuria, fever, nausea, vomiting. Severity of pain: in the emergency department the pain is unchanged is a 3 / 10. The patient has experienced similar episodes in the past, several times, and the symptoms today are exactly the same, to previous kidney stones. Historical: - Allergies: 08:55 No Known Allergies; hb - Home Meds: 08:55 aspirin 81 mg Oral TbEC 1 tab once daily [Active]; irbesartan Oral [Active]; Metformin hb Oral [Active]; Metoprolol Tartrate Oral [Active]; paroxetine Oral [Active]; rosuvastatin Oral [Active]; - PMHx: 08:55 Diabetes - NIDDM; High Cholesterol; Hypertension; hb - PSHx: 08:55 Knee surgery; hb - Immunization history:: Adult Immunizations up to date. - Social history:: Smoking status: Patient reports the use of cigarette tobacco products, smokes one pack cigarettes per day. ROS: 09:53 Constitutional: Negative for fever, chills, and weight loss, Cardiovascular: Negative pm1 for chest pain, palpitations, and edema, Respiratory: Negative for shortness of breath, cough, wheezing, and pleuritic chest pain. 09:53 : Negative for injury, bleeding, discharge, and swelling, MS/Extremity: Negative for injury and deformity, Skin: Negative for injury, rash, and discoloration, Neuro: Negative for headache, weakness, numbness, tingling, and seizure. 09:53 Abdomen/GI: Negative for abdominal pain, nausea, vomiting, and diarrhea. 09:53 Back: Positive for flank pain, on the right. Exam: 09:53 Constitutional: This is a well developed, well nourished patient who is awake, alert, pm1 and in no acute distress. Head/Face: Normocephalic, atraumatic. 09:53 Skin: Warm, dry with normal turgor. Normal color with no rashes, no lesions, and no evidence of cellulitis. MS/ Extremity: Pulses equal, no cyanosis. Neurovascular intact. Full, normal range of motion. 09:53 Cardiovascular: Rate: normal, Rhythm: regular, Pulses: no pulse deficits are appreciated, Edema: is not appreciated. 09:53 Respiratory: Exam negative for acute changes, respiratory distress, shortness of breath. 09:53 Abdomen/GI: Inspection: abdomen appears normal, Palpation: abdomen is soft and non-tender, in all quadrants, mass, is not appreciated, rebound tenderness, is not appreciated. 09:53 Back: normal spinal alignment noted, CVA tenderness, is absent, vertebral tenderness, is not appreciated. 09:53 Neuro: Exam negative for acute changes, Orientation: is normal, Motor: is normal, moves all fours. Vital Signs: 08:52 BP 168 / 102; Pulse 67; Resp 16; Temp 97.8; Pulse Ox 100% on R/A; Weight 102.06 kg; hb Height 6 ft. (182.88 cm); Pain 3/10; 11:00 BP 141 / 90; Pulse 74; Resp 18; Pulse Ox 95% ; ah 12:00 BP 132 / 83; Pulse 64; Resp 18; Pulse Ox 96% ; ah 08:52 Body Mass Index 30.52 (102.06 kg, 182.88 cm) hb MDM: 09:26 Patient medically screened. pm1 11:56 Data reviewed: vital signs. Data interpreted: Pulse oximetry: on room air is 100 %. pm1 Interpretation: normal. Counseling: I had a detailed discussion with the patient and/or guardian regarding: the historical points, exam findings, and any diagnostic results supporting the discharge/admit diagnosis, lab results, radiology results, the need for outpatient follow up, to return to the emergency department if symptoms worsen or persist or if there are any questions or concerns that arise at home. 12:15 ED course: Patient without nausea and vomiting. Patient currently pain free. Calculus pm1 of right ureter is at distal end next to bladder. Expect the patient to pass calculous without intervention, therefore will trial at home. No current indication for admission. Recommended follow up with urology. 04/08 09:27 Order name: Basic Metabolic Panel; Complete Time: 10:54 pm1 04/08 09:27 Order name: CBC with Diff; Complete Time: 11:12 pm04/08 09:27 Order name: Creatinine for Radiology; Complete Time: 10:54 pm04/08 09:27 Order name: Hepatic Function; Complete Time: 10:54 pm04/08 09:27 Order name: Lipase; Complete Time: 10:54 pm04/08 09:27 Order name: Urine Microscopic Only; Complete Time: 11:25 pm04/08 09:28 Order name: CT Stone Protocol; Complete Time: 10:54 pm04/08 11:06 Order name: Urine Dipstick--Ancillary (enter results); Complete Time: 11:25 tt3 04/08 11:25 Order name: Urine Culture EDMO 04/08 09:27 Order name: IV Saline Lock; Complete Time: 09:49 pm04/08 09:27 Order name: Labs collected and sent; Complete Time: 09:49 pm04/08 09:27 Order name: Urine Dipstick-Ancillary (obtain specimen); Complete Time: 12:18 pm1 04/08 10:18 Order name: Labs - recollect needed: Lab resending label; Complete Time: 11:11 tt3 Administered Medications: 10:00 Drug: morphine 4 mg Route: IVP; Site: right antecubital; 12:17 Follow up: Response: No adverse reaction 10:00 Drug: Zofran (Ondansetron) 4 mg Route: IVP; Site: right antecubital; 12:17 Follow up: Response: No adverse reaction 10:00 Drug: NS 0.9% 500 ml Route: IV; Rate: bolus; Site: right antecubital; 12:17 Follow up: Response: No adverse reaction; IV Status: Completed infusion 11:32 Drug: Flomax 0.4 mg Route: PO; 12:17 Follow up: Response: No adverse reaction 11:32 Drug: Rocephin 1 grams Route: IV; Rate: calculated rate; Site: right antecubital; 12:16 Follow up: Response: No adverse reaction; IV Status: Completed infusion Disposition: 04/08/20 12:00 Discharged to Home. Impression: Ureterolithiasis - Right ureter with mild right hydronephrosis. - Condition is Stable. - Discharge Instructions: Kidney Stones, Dietary Guidelines to Help Prevent Kidney Stones. - Prescriptions for Tylenol- Codeine #3 300-30 mg Oral Tablet - take 1 tablet by ORAL route every 6 hours As needed; 20 tablet. Flomax 0.4 mg Oral Capsule, Sust. Release 24 hr - take 1 capsule by ORAL route once daily 1/2 hour following the same meal each day; 10 capsule. Cephalexin 500 mg Oral Capsule - take 1 capsule by ORAL route every 12 hours for 10 days; 20 capsule. - Medication Reconciliation Form, Thank You Letter, Antibiotic Education, Prescription Opioid Use form. - Follow up: Emergency Department; When: As needed; Reason: Worsening of condition. Follow up: Richie Bee MD; When: 2 - 3 days; Reason: Recheck today's complaints, Continuance of care, Re-evaluation by your physician. - Problem is new. - Symptoms have improved. Addendum: 04/09/2020 20:20 Co-signature as Attending Physician, Francesco Miranda MD I agree with the assessment and c barrett plan of care. Signatures: Dispatcher [employer] EDMO Francesco Miranda MD MD cha Marinas, Patrick, STEVEN PSYCHIATRIC TECHNICIAN ASSISTANT pm1 Rajwinder Tay RN RN Charlene Kang RN RN rBando Evans tt3 Corrections: (The following items were deleted from the chart) 04/08 12:13 09:53 The patient complains of pain in the left low back, pm1 pm1 12:27 12:00 04/08/2020 12:00 Discharged to Home. Impression: Ureterolithiasis - Right ureter ah with mild right hydronephrosis. Condition is Stable. Forms are Medication Reconciliation Form, Thank You Letter, Antibiotic Education, Prescription Opioid Use. Follow up: Emergency Department; When: As needed; Reason: Worsening of condition. Follow up: Richie Bee; When: 2 - 3 days; Reason: Recheck today's complaints, Continuance of care, Re-evaluation by your physician. Problem is new. Symptoms have improved. pm1
--- NOTE | 2020-04-08 12:00 | ER ---
Nurse's Notes [facility] Name: Mikhail Lucas Age: 69 yrs Sex: Male : 1950 Arrival Date: 04/08/2020 Time: 08:48 Bed 20 Private MD: Princess Dasilva Diagnosis: Ureterolithiasis - Right ureter with mild right hydronephrosis Presentation: 04/08 08:52 Chief complaint: Left flank pain 3/10 x 1 week. Denies fever/nausea/urinary s/s. Hx of hb kidney stones. Coronavirus screen: Proceed with normal triage. Ebola Screen: No symptoms or risks identified at this time. Initial Sepsis Screen: Does the patient meet any 2 criteria? No. Patient's initial sepsis screen is negative. Does the patient have a suspected source of infection? No. Patient's initial sepsis screen is negative. Risk Assessment: Do you want to hurt yourself or someone else? Patient reports no desire to harm self or others. Onset of symptoms was April 01, 2020. 08:52 Method Of Arrival: Wheelchair hb 08:52 Acuity: STONE 3 hb Historical: - Allergies: 08:55 No Known Allergies; hb - Home Meds: 08:55 aspirin 81 mg Oral TbEC 1 tab once daily [Active]; irbesartan Oral [Active]; Metformin hb Oral [Active]; Metoprolol Tartrate Oral [Active]; paroxetine Oral [Active]; rosuvastatin Oral [Active]; - PMHx: 08:55 Diabetes - NIDDM; High Cholesterol; Hypertension; hb - PSHx: 08:55 Knee surgery; hb - Immunization history:: Adult Immunizations up to date. - Social history:: Smoking status: Patient reports the use of cigarette tobacco products, smokes one pack cigarettes per day. Screenin:46 Abuse screen: Denies threats or abuse. Denies injuries from another. Nutritional hb screening: No deficits noted. Tuberculosis screening: No symptoms or risk factors identified. Fall Risk None identified. Assessment: 09:45 Reassessment: PT TO CT VIA WHEELCHAIR. hb 10:15 General: Appears in no apparent distress. Behavior is calm, cooperative, appropriate ah for age. Pain:. Neuro: Level of Consciousness is awake, alert, obeys commands, Oriented to person, place, time, situation. Cardiovascular: Heart tones S1 S2 present. Respiratory: Airway is patent Respiratory effort is even, unlabored, Respiratory pattern is regular, symmetrical. GI: Abdomen is obese. : Urine is cloudy. EENT: No signs and/or symptoms were reported regarding the EENT system. Derm: No signs and/or symptoms reported regarding the dermatologic system. Musculoskeletal: No signs and/or symptoms reported regarding the musculoskeletal system. 11:00 Reassessment: Medication effective. Pain is decreased at this time. Awaiting for CT ah results. 12:05 Reassessment: Discharge instructions given at this time. Education provided regarding ah prescriptions and following up with urologist. Pt voiced understanding. Vital Signs: 08:52 BP 168 / 102; Pulse 67; Resp 16; Temp 97.8; Pulse Ox 100% on R/A; Weight 102.06 kg; hb Height 6 ft. (182.88 cm); Pain 3/10; 11:00 BP 141 / 90; Pulse 74; Resp 18; Pulse Ox 95% ; ah 12:00 BP 132 / 83; Pulse 64; Resp 18; Pulse Ox 96% ; ah 08:52 Body Mass Index 30.52 (102.06 kg, 182.88 cm) hb ED Course: 08:48 Patient arrived in ED. am2 08:48 Princess Dasilva FNP-C is Private Physician. am2 08:54 Triage completed. hb 08:55 Arm band placed on. hb 09:01 Bartolome Shaffer NP is PHCP. pm1 09:01 Francesco Miranda MD is Attending Physician. pm1 09:43 Inserted saline lock: 20 gauge in right antecubital area, using aseptic technique. hb Blood collected. 09:46 Patient has correct armband on for positive identification. Placed in gown. Bed in low hb position. Call light in reach. Side rails up X 1. 10:04 CT Stone Protocol In Process Unspecified. EDMS 10:13 Charlene Kang RN is Primary Nurse. ah 12:00 Richie Bee MD is Referral Physician. pm1 12:19 No provider procedures requiring assistance completed. IV discontinued, intact, ah bleeding controlled, No redness/swelling at site. Pressure dressing applied. Administered Medications: 10:00 Drug: morphine 4 mg Route: IVP; Site: right antecubital; 12:17 Follow up: Response: No adverse reaction 10:00 Drug: Zofran (Ondansetron) 4 mg Route: IVP; Site: right antecubital; 12:17 Follow up: Response: No adverse reaction 10:00 Drug: NS 0.9% 500 ml Route: IV; Rate: bolus; Site: right antecubital; 12:17 Follow up: Response: No adverse reaction; IV Status: Completed infusion 11:32 Drug: Flomax 0.4 mg Route: PO; 12:17 Follow up: Response: No adverse reaction 11:32 Drug: Rocephin 1 grams Route: IV; Rate: calculated rate; Site: right antecubital; 12:16 Follow up: Response: No adverse reaction; IV Status: Completed infusion Outcome: 12:00 Discharge ordered by . pm1 12:15 Discharged to home ambulatory. 12:15 Condition: good 12:15 Discharge instructions given to patient, Instructed on discharge instructions, follow up and referral plans. medication usage, Demonstrated understanding of instructions, follow-up care, medications, Prescriptions given X 3. 12:27 Patient left the ED. Signatures: Dispatcher [employer] EDMS Bartolome Shaffer NP MANAGER INTEL pm1 Rajwinder Tay, Bryanna Bloom RN am2 Charlene Kang, RN NAYELI
[2020-04-08 12:35] VITALS: TEMP 97.8
[2020-04-08 12:37] VITALS: BP 132/83; O2SAT 96
== END 2020-04-08 12:27 | disposition home or self-care (01) ==
LOC: ER 08:45
DX: N13.2 Hydronephrosis with renal and ureteral calculous obstruction (principal); E11.9 Type 2 diabetes mellitus without complications; I10 Essential (primary) hypertension; E78.5 Hyperlipidemia, unspecified; F17.210 Nicotine dependence, cigarettes, uncomplicated
CPT/HCPCS: 96365; 96361; 87088; 85025; 80048; 36415; 80076; 83690; 76377; 74176; 96375; 99284; J0696; J7040 ×2; J2405; 81003; 81015; 87086

== ENCOUNTER 2020-04-17 11:21 | Emergency (ER) | payer OTHER, MEDICARE ==
--- OUTSIDE RECORDS SUMMARY | 2020-04-17 11:52 | XMS REPORT ---
[...] System Date Date MetFORMIN HCl ER ND 90620509855 500 MG Orally Activ e 1 tablet Once a day with evening meal Rosuvastatin ND 36190510007 40 MG Active TAKE ON E Calcium TABLET BY MOUTH ONCE DAILY AT BEDTIME Aspirin Adult ND 05137338364 81 MG Orally Active 1 tablet Low Strength Once a day Metoprolol ND 96334047207 25 MG Orally Active 1 ta blet Tartrate Twice a day with food Multi Vitamin ND 61099220208 - Orally Once a Active 1 tablet Mens day Irbesartan-[place] [facility] 24620786921 300-12.5 Active TA KE ONE chlorothiazide TABLET BY MOUTH ONCE DAILY Paroxetine HCl [facility] 41359326027 40MG Active TAKE ONE TABLET BY MOUTH ONCE DAILY Vitamin D3 [facility] 71458487833 1000 UNIT Active 1 capsu le Orally Once a day Results Name Result Date Reference Range Unit Abnormali ty Flag HEMOGLOBIN A1C ----A1C 6.2 [id number] Summary Purpose eClinicalWorks Submission
--- OUTSIDE RECORDS SUMMARY | 2020-04-17 11:52 | XMS REPORT ---
:1950 Author Organization [facility] t Address [address] [place] [address] Care Team Providers Name Role Phone Unavailable Unavailable Unavailable Problems Condition Condition Condition Status Onset Resolution Last Treating Co mments Source Name Details Category Date Date Treatment Clinician Date Pain, Pain, Problem Active [facility], knee, [facility] right right l Outpat[facility] ent Clinics Other Other Problem Active [facility] chronic chronic [facility] pain pain [facility] Pain in Pain in Problem Active [facility] left knee left knee [facility] - [facility] Presence Presence Problem Active [facility] of right of right [facility] - artificial artificial Me moria knee joint knee joint l Outpati ent Clinics Pain of Pain of Problem Active [facility] right heel right heel Liliana kes - Memoria l Outpati ent Clinics Presence Presence Problem Active [facility] of left [facility] left [facility] - artificial artificial Me moria knee joint knee joint l Outpati ent Clinics Primary Primary Problem Active [facility] osteoarthr osteoarthr Liliana kes - itis of itis of Memoria right knee right knee l Outpati ent Clinics Type 2 Type [address] [facility] diabetes diabetes [facility] - mellitus mellitus Memori a without without l complicati complicati Ou tpati on, on, ent without without Clinics long-term long-term current current use of use of insulin insulin Reactive Reactive Problem Active [facility] depression depression Liliana kes - [facility] Clinics Plantar Plantar Problem Active [facility] fasciitis fasciitis Luke s - of right of right Memori a foot foot l [facility] Aftercare Aftercare Problem Active [facility] following following Luke s - joint joint Memoria replacemen replacemen l t surgery t surgery Outp ati ent Clinics Essential Essential Diagnosis Active [facility] (primary) (primary) Luke s - hypertensi hypertensi Me moria on on l [facility] Seasonal Seasonal Problem Active [facility] allergic allergic [facility] - rhinitis rhinitis Memori a due to due to l pollen pollen [facility] ent Clinics Deviated Deviated Diagnosis Active [facility] nasal nasal [facility] - septum septum Memoria l [facility] ent [facility] Prostate Prostate Diagnosis Active [facility] cancer cancer [facility] - screening screening Kelvin la nena l [facility] Allergies, Adverse Reactions, Alerts This patient has no known allergies or adverse reactions. Medications Ordered Filled Start Stop Current Ordering Indication Dosage Frequency Signature Comments Components Source Medication Medication Date Date Medication? Clinician (SIG) Name Name Rosuvastati Rosuvastati Yes Princess TAKE ONE [facility] n Calcium n Calcium [place] TABLET BY [facility] - MOUTH ONCE Memoria DAILY AT l BEDTIME [facility] ent [facility] Irbesartan- Irbesartan- Yes Princess TAKE ONE [facility] Hydrochloro Hydrochloro [place] TABLET BY [facility] - thiazide thiazide MOUTH ONCE M emoria DAILY l [facility] ent [facility] Metoprolol Metoprolol Yes Princess [address] [facility] Tartrate Tartrate [place] with food L [facility] Aspirin Aspirin Yes Princess [address] [facility] Adult Low Adult Low [place] Luke s - Strength Strength Memoria l [facility] ent [facility] Multi Multi Yes Princess [address] [facility] Vitamin Vitamin [place] [facility] - Mens Mens Memoria l [facility] ent [facility] Paroxetine Paroxetine Yes Princess TAKE ONE [facility] HCl HCl [place] TABLET BY [facility] - MOUTH ONCE Memoria DAILY l [facility] ent [facility] Vitamin D3 Vitamin D3 Yes Princess [address] [facility] [place] [facility] - [facility]oria l [facility] MetFORMIN MetFORMIN Yes Princess [address] [facility] HCl ER HCl ER [place] with [facility] - evening Memoria meal l [facility] ent [facility] Procedures This patient has no known procedures. Encounters Start End Encounter Admission Attending Care Care Encounter Source Date/Time Date/Time Type Type Clinicians Facility Department ID 2020-03-01 2020-03-01 Outpatient Emerald Mcnair [id number] [facility] 10:20:00 10:20:00 [facility] ent [facility] 2020-02-29 2020-02-29 Outpatient Emerald Mcnair [id number] [facility] 13:26:00 13:26:00 [facility] ent Clinics 2019-08-30 2019-08-30 [facility] [id number] [facility] 16:00:00 16:00:00 t [facility] Outpati ent Clinics 2019-03-08 2019-03-08 [facility] [id number] [facility] 17[facility]11:00 17:11:00 t [facility] Outpati ent Clinics 2019-03-07 2019-03-07 [facility] [id number] 14:26:00 14:26:00 t [facility] Medicine Outpati ent Clinics 2019-02-07 2019-02-07 [facility] [id number] 12:15:00 12:15:00 t [facility] Medicine Outpati ent Clinics 2019-01-31 2019-01-31 [facility] [id number] 10:00:00 10:00:00 [facility] Outpati ent Clinics 2019-01-24 2019-01-24 [facility] [id number] 09:00:00 09:00:00 t [facility] 2018-11-10 2018-11-10 [facility] [id number] [facility] 08:30:00 08:30:00 [facility] Clinics 2018-08-30 2018-08-30 [facility] [id number] 13:30:00 13:30:00 [facility] 2018-08-23 2018-08-23 [facility] [id number] 11:00:00 11:00:00 [facility] Clin[facility] 2018-08-19 2018-08-19 [facility] [id number] [facility] 16:54:00 16:54:00 t [facility] Clin[facility] 2018-08-16 2018-08-16 Outpatient Emerald Mcnair [id number] 13:30:00 13:30:00 t [facility] Clin[facility] 2018-08-05 2018-08-05 Outpatient Emerald Mcnair [id number] [facility] 14:45:00 14:45:00 t [facility] Clin[facility] 2018-07-26 2018-07-26 Outpatient Emerald Mcnair [id number] [facility] 11:30:00 11:30:00 t [facility] ent Clinics Results This patient has no known results.
--- OUTSIDE RECORDS SUMMARY | 2020-04-17 11:52 | XMS REPORT ---
[...] End Date Status Dosage System Date Losartan [facility] 82864875150 100-12.5 MG March 08 Active 1 tab let Potassium-HCTZ Orally Once a 2018 day Results No Known Results Summary Purpose eClinicalWorks Submission
--- OUTSIDE RECORDS SUMMARY | 2020-04-17 11:52 | XMS REPORT ---
[...] End Status Dosage System Date Date Rosuvastatin [facility] 48468758148 40 MG Active TAKE ON E Calcium TABLET BY MOUTH ONCE DAILY AT BEDTIME Irbesartan-Hydr [facility] 28745806833 300-12.5 Active ETMITOPE E ONE ochlorothiazide TABLET B Y MOUTH ONCE DAILY Hydrocodone-Keon [facility] [address]-46 Active no t taminophen defined Metoprolol [facility] 00602773657 25 MG Orally Active 1 ta blet Tartrate Twice a day with food Aspirin Adult [facility] 50624555732 81 MG Orally Active 1 tablet Low Strength Once a day Multi Vitamin [facility] 05739553457 - Orally Once a Active 1 tablet Mens day B Complex [facility] 98157910651 - Orally Active not defined MetFORMIN HCl [facility] 22782251247 500 MG Orally Active 1 tablet ER Once a day with evening meal Paroxetine HCl [facility] 67630819697 40MG Active TAKE ONE TABLET BY MOUTH ONCE DAILY Metoprolol [facility] 54650777316 25 MG Orally Active 1 ta blet Tartrate Twice a day with food Ocuvite NDC 0 Active not defined Vitamin D3 [facility] 08245591509 1000 UNIT Active 1 capsu le Orally Once a day Results Name Result Date Reference Range Unit Abnormali ty Flag HEMOGLOBIN A1C ----A1C 5.8 [id number] Summary Purpose eClinicalWorks Submission
[2020-04-17 12:48] LABS: Absolute Lymphocytes (CBC) 3.2 K/uL (0.7-4.9); Basophils % 0.7 % (0-1.3); Lymphocytes % 33.3 % (15.3-44.8); MPV 8.9 fL (7.6-11.3); RBC Red Blood Cell Count 5.18 M/uL (4.33-5.43)
[2020-04-17] MEDS ORDERED: KETOROLAC 30 MG/ML INJ ONE (12:52)
[2020-04-17 13:01] LABS: Urine Blood NEGATIVE (NEG); Urine Glucose NEGATIVE (NEG); Urine Protein NEGATIVE (NEG)
--- NOTE | 2020-04-17 13:01 | RAD REPORT ---
EXAM DESCRIPTION: CT - Stone Protocol - 04/17/2020 12:51 pm CLINICAL HISTORY: Flank pain. left flank pain COMPARISON: Stone Protocol dated 04/08/2020 TECHNIQUE: Axial images were obtained without oral or IV contrast. Lack of contrast limits solid org an and vascular assessment. The [id number] spans the entirety of the system partially obscuring uppermost abdomen and lung bases. Coronal reformatted images were obtained and reviewed. All CT scans are performed using dose optimization technique as appropriate and may include automated exposure control or mA/KV adjustment according to patient size. FINDINGS: The lower lung rodriguez are clear. Imaged portions of the liver and spleen show no suspicious findings on non-contrast imaging. The panc reas is grossly normal.Nodularity of both adrenal glands is stable. No pathologic lymphadenopathy in the abdomen or pelvis. Caliceal stones are present bilaterally, largest in the inferior calyx left kidney measuring 8 mm. No hydronephrosis. The stone recently diagnosed in the distal right ureter is still present however cur rently at the level of the UVJ and measures 6-7 mm. Previously noted right-sided hydronephrosis has r esolved. No bowel obstruction, free air, free fluid or abscess. Normal appendix noted. No significant bony abnormality. IMPRESSION: Right UVJ stone is again seen measuring 6-7 mm without significant hydronephrosis. Bilateral caliceal nephrolithiasis again seen without significant change.
[2020-04-17 13:11] LABS: Potassium 4.2 mmol/L (3.5-5.1)
--- NOTE | 2020-04-17 14:03 | EDPHYS ---
Physician Documentation [facility] Name: Mikhail Lucas Age: 69 yrs Sex: Male : 1950 Arrival Date: 04/17/2020 Time: 11:23 Bed 15 Private MD: ED Physician Nhan Trejo HPI: 04/17 15:41 This 69 yrs old Male presents to ER via Ambulatory with complaints of kdr Possible Kidney Stone. 15:41 The patient complains of pain in the left mid back. The pain does not radiate. Onset: kdr The symptoms/episode began/occurred gradually, 3 day(s) ago. Modifying factors: The symptoms are alleviated by nothing. the symptoms are aggravated by nothing. Associated signs and symptoms: The patient has no apparent associated signs or symptoms. Severity of pain: At its worst the pain was mild moderate just prior to arrival, in the emergency department the pain has improved. The patient has experienced similar episodes in the past, several times. The patient has been recently seen at the [facility] Emergency Department, last week. The patient states that he was recently diagnosed with a 20 mm left kidney stone on his last visit. Historical: - Allergies: 11:45 No Known Allergies; ph - Home Meds: 11:45 aspirin 81 mg Oral TbEC 1 tab once daily [Active]; irbesartan Oral [Active]; Metformin ph Oral [Active]; Metoprolol Tartrate Oral [Active]; paroxetine Oral [Active]; rosuvastatin Oral [Active]; - PMHx: 11:45 Diabetes - NIDDM; High Cholesterol; Hypertension; ph - PSHx: 11:45 Knee surgery; ph - Immunization history:: Adult Immunizations unknown. - Social history:: Smoking status: Patient denies any tobacco usage or history of. ROS: 15:41 Constitutional: Negative for fever, chills, and weight loss, Eyes: Negative for injury, kdr pain, redness, and discharge, ENT: Negative for injury, pain, and discharge, Neck: Negative for injury, pain, and swelling, Cardiovascular: Negative for chest pain, palpitations, and edema, Respiratory: Negative for shortness of breath, cough, wheezing, and pleuritic chest pain, Abdomen/GI: Negative for abdominal pain, nausea, vomiting, diarrhea, and constipation, : Negative for injury, bleeding, discharge, and swelling, MS/Extremity: Negative for injury and deformity, Skin: Negative for injury, rash, and discoloration, Neuro: Negative for headache, weakness, numbness, tingling, and seizure activity. Psych: Negative for depression, anxiety, suicide ideation, homicidal ideation, and hallucinations, Allergy/Immunology: Negative for hives, rash, and allergies, Endocrine: Negative for neck swelling, polydipsia, polyuria, polyphagia, and marked weight changes, Hematologic/Lymphatic: Negative for swollen nodes, abnormal bleeding, and unusual bruising. 15:41 Back: Positive for pain at rest, flank pain. Exam: 15:41 Constitutional: This is a well developed, well nourished patient who is awake, alert, kdr and in no acute distress. Head/Face: Normocephalic, atraumatic. Neck: Trachea midline, no thyromegaly or masses palpated, and no cervical lymphadenopathy. Supple, full range of motion without nuchal rigidity, or vertebral point tenderness. No Meningismus. Chest/axilla: Normal chest wall appearance and motion. Nontender with no deformity. No lesions are appreciated. Cardiovascular: Regular rate and rhythm with a normal S1 and S2. No gallops, murmurs, or rubs. Normal PMI, no JVD. No pulse deficits. Respiratory: Lungs have equal breath sounds bilaterally, clear to auscultation and percussion. No rales, rhonchi or wheezes noted. No increased work of breathing, no retractions or nasal flaring. Abdomen/GI: Soft, non-tender, with normal bowel sounds. No distension or tympany. No guarding or rebound. No evidence of tenderness throughout. Back: No spinal tenderness. No costovertebral tenderness. Full range of motion. Skin: Warm, dry with normal turgor. Normal color with no rashes, no lesions, and no evidence of cellulitis. MS/ Extremity: Pulses equal, no cyanosis. Neurovascular intact. Full, normal range of motion. Neuro: Awake and alert, GCS 15, oriented to person, place, time, and situation. Cranial nerves II-XII grossly intact. Motor strength 5/5 in all extremities. Sensory grossly intact. Cerebellar exam normal. Normal gait. Psych: Awake, alert, with orientation to person, place and time. Behavior, mood, and affect are within normal limits. Vital Signs: 11:40 BP 153 / 119; Pulse 70; Resp 18; Temp 97.3; Pulse Ox 97% on R/A; ph 13:11 BP 112 / 68; Pulse 69; Resp 19; Pulse Ox 97% ; ah 13:45 BP 106 / 86; Pulse 61; Resp 15; Pulse Ox 96% ; ah MDM: 14:02 Patient medically screened. [facility] 16:02 Data reviewed: vital signs, lab test result(s), radiologic studies. Counseling: I had a kdr detailed discussion with the patient and/or guardian regarding: the historical points, exam findings, and any diagnostic results supporting the discharge/admit diagnosis, lab results, radiology results, the need for outpatient follow up. 04/17 12:26 Order name: Basic Metabolic Panel; Complete Time: 13:34 kdr 04/17 12:26 Order name: CBC with Diff; Complete Time: 13:34 kdr 04/17 12:26 Order name: IV Saline Lock; Complete Time: 14:00 kdr 04/17 12:39 Order name: CT Stone Protocol; Complete Time: 13:34 kdr 04/17 12:42 Order name: Urine Dipstick--Ancillary (enter results); Complete Time: 13:34 bd 04/17 12:26 Order name: Labs collected and sent; Complete Time: 14:00 kdr 04/17 12:26 Order name: Urine Dipstick-Ancillary (obtain specimen); Complete Time: 12:43 kdr Administered Medications: 13:00 Drug: TORadol - Ketorolac 15 mg Route: IVP; Site: left antecubital; 14:00 Follow up: Response: No adverse reaction; Pain is decreased Disposition: 04/17/20 14:02 Discharged to Home. Impression: Left Flank Pain. - Condition is Stable. - Discharge Instructions: Flank Pain, Adult, Kidney Stones, [id number]. - Medication Reconciliation Form, Thank You Letter form. - Follow up: Private Physician; When: 2 - 3 days; Reason: If symptoms return, Further diagnostic work-up, Recheck today's complaints, Continuance of care, Re-evaluation by your physician. - Problem is new. - Symptoms have improved. Signatures: Dispatcher [employer] EDNhan Acuña MD MD [facility] Any Barraza RN RN Charlene Kang RN RN Corrections: (The following items were deleted from the chart) 14:28 14:02 04/17/2020 14:02 Discharged to Home. Impression: Left Flank Pain. Condition is ah Stable. Forms are Medication Reconciliation Form, Thank You Letter, Antibiotic Education, Prescription Opioid Use. Follow up: Private Physician; When: 2 - 3 days; Reason: If symptoms return, Further diagnostic work-up, Recheck today's complaints, Continuance of care, Re-evaluation by your physician. Problem is new. Symptoms have improved. kdr
--- NOTE | 2020-04-17 14:03 | ER ---
Nurse's Notes [facility] Name: Mikhail Lucas Age: 69 yrs Sex: Male : 1950 Arrival Date: 04/17/2020 Time: 11:23 Bed 15 Private MD: Diagnosis: Left Flank Pain Presentation: 04/17 11:40 Chief complaint: Spouse and/or significant other states: Seen approx 9 days ago dx w/ ph kidney stones, states " He passed a small stone but I think the big one is still up there." Pt c/o L flank pain and dark urine, denies fever, N/V/D. states, " They said he had a 20mm stone so I don't know why they didn't break it up.". Coronavirus screen: Patient denies a cough. Patient denies shortness of breath or difficulty breathing. Patient denies measured and/or subjective temperature greater than 100.4F prior to today's visit. Patient denies travel on a cruise ship or to a country the [facility] currently lists as an affected area. Patient denies contact with known and/or suspected case of COVID-19. Ebola Screen: No symptoms or risks identified at this time. Initial Sepsis Screen: Does the patient meet any 2 criteria? No. Patient's initial sepsis screen is negative. Does the patient have a suspected source of infection? No. Patient's initial sepsis screen is negative. Risk Assessment: Do you want to hurt yourself or someone else? Patient reports no desire to harm self or others. Onset of symptoms was April 17, 2020. 11:40 Method Of Arrival: Ambulatory ph 11:40 Acuity: STONE 3 ph Historical: - Allergies: 11:45 No Known Allergies; ph - Home Meds: 11:45 aspirin 81 mg Oral TbEC 1 tab once daily [Active]; irbesartan Oral [Active]; Metformin ph Oral [Active]; Metoprolol Tartrate Oral [Active]; paroxetine Oral [Active]; rosuvastatin Oral [Active]; - PMHx: 11:45 Diabetes - NIDDM; High Cholesterol; Hypertension; ph - PSHx: 11:45 Knee surgery; ph - Immunization history:: Adult Immunizations unknown. - Social history:: Smoking status: Patient denies any tobacco usage or history of. Screenin:12 Abuse screen: Denies threats or abuse. Nutritional screening: No deficits noted. Tuberculosis screening: No symptoms or risk factors identified. Fall Risk None identified. Assessment: 12:26 General: Appears uncomfortable, Behavior is calm, cooperative. Pain: Complains of pain ah in low back area Pain currently is 8 out of 10 on a pain scale. Neuro: Level of Consciousness is awake, alert, Oriented to person, place, time, situation. Cardiovascular: Heart tones S1 S2 present. Respiratory: Airway is patent Respiratory effort is even, unlabored, Respiratory pattern is regular, symmetrical. GI: Abdomen is distended, Bowel sounds present X 4 quads. Abdomen is tender to palpation. : Urine is dark Reports pain flank(s), Denies burning with urination. EENT: No signs and/or symptoms were reported regarding the EENT system. Derm: No signs and/or symptoms reported regarding the dermatologic system. Musculoskeletal: No signs and/or symptoms reported regarding the musculoskeletal system. Vital Signs: 11:40 BP 153 / 119; Pulse 70; Resp 18; Temp 97.3; Pulse Ox 97% on R/A; ph 13:11 BP 112 / 68; Pulse 69; Resp 19; Pulse Ox 97% ; ah 13:45 BP 106 / 86; Pulse 61; Resp 15; Pulse Ox 96% ; ah ED Course: 11:23 Patient arrived in ED. mr 11:23 Nhan Trejo MD is Attending Physician. kdr 11:44 Triage completed. ph 11:45 Arm band placed on Patient placed in waiting room, Patient notified of wait time. ph 12:21 Charlene Kang, RN is Primary Nurse. ah 12:29 Patient has correct armband on for positive identification. Bed in low position. Call light in reach. Side rails up X 1. 12:51 CT Stone Protocol In Process Unspecified. EDMS 12:55 Missed attempt(s): 20 gauge in right antecubital area. blood collected. Bleeding tw2 controlled, band aid applied, catheter tip intact. 14:26 No provider procedures requiring assistance completed. IV discontinued, intact, bleeding controlled, No redness/swelling at site. Pressure dressing applied. Administered Medications: 13:00 Drug: TORadol - Ketorolac 15 mg Route: IVP; Site: left antecubital; 14:00 Follow up: Response: No adverse reaction; Pain is decreased Outcome: 14:02 Discharge ordered by . shereen 14:26 Discharged to home ambulatory. 14:26 Condition: good 14:26 Discharge instructions given to patient, Instructed on discharge instructions, follow up and referral plans. Demonstrated understanding of instructions, follow-up care. 14:28 Patient left the ED. Signatures: Dispatcher [employer] EDMS Nhan Trejo MD MD kdr Rivera, Glenys mr Any Barraza RN RN Sharon Farooq RN RN 2 Charlene Kang RN RN
[2020-04-17 14:33] VITALS: TEMP 97.3
[2020-04-17 14:35] VITALS: BP 106/86; O2SAT 96
== END 2020-04-17 14:28 | disposition home or self-care (01) ==
LOC: ER 11:21
DX: R10.9 Unspecified abdominal pain (principal); I10 Essential (primary) hypertension; E11.9 Type 2 diabetes mellitus without complications; E78.00 Pure hypercholesterolemia, unspecified; Z79.82 Long term (current) use of aspirin
CPT/HCPCS: 36415; 74176; 76377; 80048; 81003; 85025; 96374; 99283